=== PATIENT | male | born 1945 | race Caucasian/White ===

== ENCOUNTER → 2020-05-16 08:49 | Outpatient (REF) | payer MEDICARE, SELFPAY ==
--- NOTE | 2020-05-16 09:30 | CA_ITS ---
Transthoracic Echocardiogram Patient (Last, First, Middle): Everardo Mirza B Gender: Male Date of : 1945 Age: 75 Procedure Date: 05/16/2020 Procedure Type: Transthoracic Echocardiogram Location: OP Height: 182.88 cm Weight: 108.86 kg BSA: 2.30 m2 Heart Rate: bpm BP: 128 / 72 mmHg Operational Intelligence Analyst: Referring MD: Simone Uribe MD Symptoms: dilated ascending aorta Study Quality: Fair ECG Rhythm: Sinus Conclusions: - The left ventricular systolic function is normal. The visually estimated ejection fraction is between 55-60%. - No obvious valvular pathology seen on this study. - Top normal ascending aortic size at 4 cm. Findings Left Ventricle Normal left ventricular cavity size. There is mildly increased left ventricular wall thickness. The left ventricular systolic function is normal. The visually estimated ejection fraction is between 55-60%. There is no evidence of regional wall motion abnormalities. Diastolic function is normal for age. Right Ventricle Normal right ventricular cavity size and systolic function. Atria Both atria are normal in size. Aortic Valve There is a normal trileaflet aortic valve. There is no aortic valve stenosis. There is trace (trivial) aortic valve regurgitation. Mitral Valve The mitral valve appears normal. There is mild mitral annular calcification. There is no mitral valve regurgitation. There is no mitral valve stenosis. Pulmonic Valve The pulmonic valve was not well visualized. Tricuspid Valve Normal tricuspid valve structure. There is mild tricuspid valve regurgitation. The pulmonary artery systolic pressure is normal. Great Vessels Top normal ascending aortic size at 4 cm. Venous The inferior vena cava is normal in size and collapses greater than 50% with inspiration. Pericardium/Pleural There is no evidence of pericardial effusion. Prior Study Comparison No significant change compared to prior study dated: 04/29/2019. Recommendations, Care & Conclusions No obvious valvular pathology seen on this study. Measurements 2D Linear Measurements RVIDd: 3.40 RVIDd Index: 1.48 IVSd: 1.06 0.6-0.9/0.6-1.0 cm LVIDd: 4.88 3.9-5.3/4.2-5.9 cm LVIDd Index: 2.12 2.4-3.2/2.2-3.1 cm/m2 LVIDs: 3.09 2.0-3.6 cm LVPWd: 1.30 0.7-1.1 cm Ao Root: 3.40 2.1-3.5 cm LA Diam: 4.30 2.7-3.8/3.0-4.0 cm LAIDs Index: 1.87 1.5-2.3 cm/m2 LV Mass: 273.82 67-162/88-224 g LV Mass Index: 119.05 43-95/49-115 g/m2 LVOT Diam: 2.30 3.0+(-)1.3 cm 2D Systolic Function EF 4C: 44.30 >55% EF 2C: 68.90 >55% EF BiP: 59.30 >55% Mitral Valve MV Pk E: 0.52 MV PK A: 0.68 MV Decel Time: 243.00 E/A: 0.80 E'Lateral: 11.10 E'Medial: 6.29 E/E' Med: 8.30 E/E' Lat: 4.70 Aortic Valve AoV Pk King: 1.03 AoV Mn King: 0.83 AoV VTI: 0.23 AoV Pk Grad: 4.00 Aov Mn Grad: 3.00 CALEB Cont.VTI: 3.58 AI Pk King: 3.33 AI Hunt: 1.21 LVOT LVOT Pk King: 1.05 LVOT Mn King: 0.69 LVOT VTI: 0.20 LVOT Pk Grad: 4.00 LVOT Mn Grad: 2.00 LVOT Diam: 2.30 LVOT Area: 4.15 Diastolic Function MV Pk E: 0.52 MV Pk A: 0.68 E/A: 0.80 E'Medial: 6.29 E/E' Med: 8.30 E' Laterial: 11.10 E/E' Lat: 4.70 Tricuspid Valve TR Pk King: 2.52 TR Pk Grad: 25.00 RA Press: 8.00 RVSP: 33.00 Great Vessels Aorta Ao Root-2D: 3.40 2.0-3.7 cm Ao Asc: 4.00 2.1-3.4 cm Ao Arch: 3.10 Updated in Other Vendor System with Status of Final Simone Uribe MD electronically signed on 05/17/2020 5:17:59 PM with status of Final
== END ==
LOC: HO.CARD 08:49
PROVIDERS: PCP Nurse Practitioner Family; Visit Provider Internal Medicine
DX: I77.810 Thoracic aortic ectasia (principal)
CPT/HCPCS: 93306

== ENCOUNTER → 2020-06-01 13:00 | Outpatient (BNVA) | payer MEDICARE, SELFPAY | PROVIDERS: PCP Nurse Practitioner Family; Visit Provider Internal Medicine | DX: I48.0 Paroxysmal atrial fibrillation (principal); I77.810 Thoracic aortic ectasia; Z79.01 Long term (current) use of anticoagulants; Z79.899 Other long term (current) drug therapy | CPT/HCPCS: 93005; 99212 ==

== ENCOUNTER → 2021-05-30 09:59 | Outpatient (BNVA) | payer MEDICARE, SELFPAY | PROVIDERS: PCP Nurse Practitioner Family; Referring Provider Nurse Practitioner Family; Visit Provider Internal Medicine | DX: I48.0 Paroxysmal atrial fibrillation (principal); I44.0 Atrioventricular block, first degree; I77.810 Thoracic aortic ectasia | CPT/HCPCS: 93005; 99212 ==

== ENCOUNTER → 2022-03-26 10:15 | Outpatient (BNVA) | payer MEDICARE, SELFPAY | PROVIDERS: PCP Nurse Practitioner Family; Visit Provider Surgery Vascular Surgery | DX: I83.12 Varicose veins of left lower extremity with inflammation (principal); I83.91 Asymptomatic varicose veins of right lower extremity | CPT/HCPCS: 99202 ==

== ENCOUNTER → 2022-05-06 08:46 | Outpatient (REF) | payer MEDICARE, SELFPAY ==
--- NOTE | 2022-05-06 08:49 | CA_ITS ---
Transthoracic Echocardiogram Patient (Last, First, Middle): Everardo Mirza B Gender: Male Date of : 1945 Age: 77 Procedure Date: 05/06/2022 Procedure Type: Transthoracic Echocardiogram Location: OP Height: 182.88 cm Weight: 109.77 kg BSA: 2.31 m2 Heart Rate: 60 bpm BP: 120 / 70 mmHg Offset Printing Operator: JORDAN Cano MD: Simone Uribe MD Respiratory Practitioner: Lewis Espana MD Symptoms: I48.0 - Paroxysmal atrial fibrillation Study Quality: Fair ECG Rhythm: Sinus with PVCs Conclusions: - 1. Low normal LV ejection fraction with LVEF of 50-55% with grade 1 diastolic dysfunction 2. Trivial aortic regurgitation 3. Mildly dilated ascending aorta at 3.9 cm 4. Normal RV systolic pressure 5. No pericardial effusion Findings Left Ventricle Normal left ventricular cavity size. There is normal left ventricular wall thickness. The left ventricular systolic function is low normal. The visually estimated ejection fraction is between 50-55%. Spectral Doppler is indicative of an impaired relaxation filling pattern. E/E prime ratio is <8, consistent with normal filling pressures. Evidence suggests grade I (mild) diastolic dysfunction. There is mild septal asymmetric hypertrophy. Right Ventricle Normal right ventricular cavity size and systolic function. Atria The left atrium is normal in size. Interatrial shunt cannot be excluded. The right atrium was not well visualized. Aortic Valve There is mild calcification of the aortic valve. There is no aortic valve stenosis. There is trace (trivial) aortic valve regurgitation. Mitral Valve There is mild anterior and posterior mitral leaflet thickening. There is trace mitral valve regurgitation. There is no mitral valve stenosis. Pulmonic Valve The pulmonic valve was not well visualized. Tricuspid Valve Likely normal tricuspid valve structure and function. There is trace tricuspid valve regurgitation. The right ventricular systolic pressure is normal. The right ventricular systolic pressure is 15 mmHg. Normal right atrial pressure. There is no evidence of pulmonary hypertension. Great Vessels The pulmonary artery was not well visualized. There is mild dilatation of the ascending aorta measuring 3.90 cm. Venous The inferior vena cava is normal in size and collapses greater than 50% with inspiration. Pericardium/Pleural There is no evidence of pericardial effusion. Prior Study Comparison Changes noted compared to prior study dated: 05/16/2020. LV systolic function marginally reduced Measurements 2D Linear Measurements IVSd: 1.44 0.6-0.9/0.6-1.0 cm LVIDd: 3.93 3.9-5.3/4.2-5.9 cm LVIDd Index: 1.70 2.4-3.2/2.2-3.1 cm/m2 LVIDs: 2.96 2.0-3.6 cm LVPWd: 1.11 0.7-1.1 cm LA Diam: 3.60 2.7-3.8/3.0-4.0 cm LAIDs Index: 1.56 1.5-2.3 cm/m2 LV Mass: 219.86 67-162/88-224 g LV Mass Index: 95.18 43-95/49-115 g/m2 LVOT Diam: 2.30 3.0+(-)1.3 cm 2D Systolic Function EF 4C: 48.20 >55% EF 2C: 54.20 >55% EF BiP: 53.40 >55% Mitral Valve MV Pk E: 0.37 MV PK A: 0.66 MV Decel Time: 874.00 E/A: 0.60 E'Lateral: 6.09 E'Medial: 5.33 E/E' Med: 7.00 E/E' Lat: 6.10 PHT: 256.00 MVA PHT: 0.86 Decel Gilliam: 0.43 Aortic Valve AoV Pk King: 0.89 AoV Mn King: 0.68 AoV VTI: 0.21 AoV Pk Grad: 3.00 Aov Mn Grad: 2.00 CALEB Cont.VTI: 3.20 LVOT LVOT Pk King: 0.73 LVOT Mn King: 0.53 LVOT VTI: 0.16 LVOT Pk Grad: 2.00 LVOT Mn Grad: 1.00 LVOT Diam: 2.30 LVOT Area: 4.15 Diastolic Function MV Pk E: 0.37 MV Pk A: 0.66 E/A: 0.60 E'Medial: 5.33 E/E' Med: 7.00 E' Laterial: 6.09 E/E' Lat: 6.10 Right Ventricle TAPSE (mm): 20.40 TVS' King: 9.14 Tricuspid Valve TR Pk King: 1.70 TR Pk Grad: 12.00 RA Press: 3.00 RVSP: 15.00 Great Vessels Aorta Sinus of Valsalva: 3.70 2.0-3.5 cm Ao Asc: 3.90 2.1-3.4 cm Pulmonary Valve PV Pk King: 0.69 Peak PV Grad: 2.00 Updated in Other Vendor System with Status of Final Lewis Espana MD electronically signed on 05/06/2022 6:20:00 PM with status of Final
== END ==
LOC: HO.CARD 08:46
PROVIDERS: Visit Provider Internal Medicine
DX: I48.0 Paroxysmal atrial fibrillation (principal)
CPT/HCPCS: 93306

== ENCOUNTER 2022-05-21 09:25 | Outpatient (REF) | payer MEDICARE, SELFPAY ==
--- NOTE | ~2022-05-21 | US_ITS ---
EXAMINATION: US LOWER EXTREMITY VENOUS (REFLUX EXAM), BILATERAL CLINICAL INDICATION: This is a 77-year-old male with venous insufficiency. Leg swelling. Varicose veins. COMPARISON: None. TECHNIQUE: Color flow triplex imaging and compression Doppler was performed to evaluate both the deep and the superficial systems bilaterally. To evaluate the superficial system, the examination was performed in the upright position. Color-flow Doppler ultrasound and compression ultrasound were utilized. In addition, maneuvers were utilized to demonstrate reflux. FINDINGS: 1. DEEP VENOUS ULTRASOUND OF THE RIGHT LOWER EXTREMITY: Common Femoral Vein: Compressible, normal respiratory variation and augmented flow. Femoral vein: Compressible, normal color flow and augmentation. Popliteal Vein: The vessels compressible but there is reflux of 2800 ms. Deep Reflux: There is evidence of reflux in the deep system in either the common femoral vein or the popliteal vein. There is no evidence of a Clark's cyst. 2. SUPERFICIAL ULTRASOUND WITH DOPPLER OF RIGHT LOWER EXTREMITY: GREAT SAPHENOUS VEIN: Saphenofemoral Junction: 1.1 cm. There is no reflux. Proximal thigh: 1.0 cm. There is no reflux. Mid Thigh: 0.4 cm. The reflux time is 3240 ms. Above Knee: 0.5 cm. There is no reflux. Below Knee: 0.3 cm. There is reflux of 3360 ms. Mid Calf: 0.3 cm. The reflux time is 2484 ms. Ankle: 0.3 cm. There is no reflux. GSV REFLUX: There is reflux in the great saphenous vein but not seen at the junction or the proximal thigh. DUPLICATED GREAT SAPHENOUS VEIN: None SMALL SAPHENOUS VEIN: Proximal: 0.9 cm. The reflux time is 3396 ms Distal: 0.4 cm. The reflux time is 1592 ms. SSV REFLUX: There is reflux at the junction and extending into the calf. VEIN OF GIACOMINI: None Imaged. PERFORATORS: A 0.4 cm distal calf instructor ground services with reflux is noted. VARICOSITIES: Multiple varicosities are noted throughout the leg. 3. DEEP VENOUS ULTRASOUND OF THE LEFT LOWER EXTREMITY: Common Femoral Vein: Compressible, normal respiratory variation and augmented flow. Femoral Vein: Compressible, but with reflux of 2044 ms. Popliteal Vein: Compressible, but with reflux of 2007 are 64 ms. Deep Reflux: There is evidence of reflux in the deep system in either the common femoral vein or the popliteal vein. There is no evidence of a Calrk's cyst. 4. SUPERFICIAL ULTRASOUND WITH DOPPLER OF LEFT LOWER EXTREMITY: GREAT SAPHENOUS VEIN: Saphenofemoral Junction: 1.0 cm. There is no reflux. Proximal thigh: 0.9 cm without reflux. Mid Thigh: 0.4 cm. The reflux time is 3016 ms. Above Knee: 0.4 cm. There is no reflux. Below Knee: 0.3 cm. The reflux time is 1992 ms. Mid Calf: 0.2 cm. The reflux time is 2020 ms. Ankle: 0.5 cm. There is no reflux. GSV REFLUX: There is reflux in the great saphenous vein but not at the saphenofemoral junction or proximal thigh. DUPLICATED GREAT SAPHENOUS VEIN: There is a 0.3 cm duplicated medial great saphenous vein without reflux. SMALL SAPHENOUS VEIN: Proximal: 0.3 cm. The reflux time is 1612 ms. Distal: 0.4 cm. There is no reflux SSV REFLUX: There is reflux in the small saphenous vein. The reflux is seen at the junction. VEIN OF GIACOMINI: None Imaged. PERFORATORS: There are 0.2 cm perforators laterally in the distal thigh and proximal calf, respectively. VARICOSITIES: Multiple varicose veins are noted. US/US venous duplex LE BI IMPRESSION: 1. There are patent bilateral great saphenous veins without evidence of reflux at the saphenofemoral junction or proximal thigh. 2. There are patent bilateral small saphenous veins with reflux at the junction and extending into the calf. 3. There are bilateral perforators and varicose veins with reflux as noted.
[2022-05-21 10:16] LABS: Hemoglobin 13.5 g/dl (14.0-18.0); Mean Corpuscular HGB Conc 32.9 g/dl (31.0-36.0); Mean Corpuscular Hemoglobin 32.7 pg (27.0-33.0); Mean Corpuscular Volume 99.3 fL (80.0-98.0); Mean Platelet Volume 10.8 fL (9.4-12.4); Platelet Count 134 X10*3/uL (160-400); Red Blood Count 4.13 X10*6/uL (4.60-5.80); Red Cell Distribution Width 13.3 % (11.0-16.0); White Blood Count 7.1 X10*3/uL (4.8-10.8)
[2022-05-21 10:50] LABS: Anion Gap 15 (12-20); Blood Urea Nitrogen 18 mg/dL (9-16); Calcium 8.7 mg/dL (8.4-10.2); Carbon Dioxide 27 mmol/L (22-29); Chloride 104 mmol/L (96-108); Estimated Glomerular Filt Rate > 60; Glucose Random 93 mg/dL (60-115); Potassium 4.8 mmol/L (3.3-5.1); Sodium 141 mmol/L (135-145)
== END 2022-05-21 09:26 | disposition home or self-care (01) ==
LOC: HO.US 09:25
PROVIDERS: Absent Provider Internal Medicine; PCP Nurse Practitioner Family; Visit Provider Surgery Vascular Surgery
DX: I48.0 Paroxysmal atrial fibrillation (principal); I77.810 Thoracic aortic ectasia; I44.0 Atrioventricular block, first degree; I83.12 Varicose veins of left lower extremity with inflammation; R60.0 Localized edema
CPT/HCPCS: 36415; 80048; 85027; 93005; 93970; 99212

== ENCOUNTER → 2022-05-28 10:13 | Outpatient (BNVA) | payer MEDICARE, SELFPAY | PROVIDERS: PCP Nurse Practitioner Family; Visit Provider Surgery Vascular Surgery | DX: I83.12 Varicose veins of left lower extremity with inflammation (principal) | CPT/HCPCS: 99212 ==

== ENCOUNTER → 2022-06-21 08:24 | Outpatient (BNVA) | payer MEDICARE, SELFPAY | PROVIDERS: PCP Nurse Practitioner Family; Visit Provider Surgery Vascular Surgery | DX: I83.12 Varicose veins of left lower extremity with inflammation (principal) | CPT/HCPCS: 36482 ==

== ENCOUNTER 2022-06-24 14:57 | Outpatient (REF) | payer MEDICARE, SELFPAY ==
--- NOTE | ~2022-06-24 | US_ITS ---
EXAMINATION: US VENOUS ULTRASOUND WITH DOPPLER LOWER EXTREMITY, LEFT CLINICAL INFORMATION: Pain left leg COMPARISON: None TECHNIQUE: Ultrasound of the deep veins is performed from the hip to the calf with compression sonography and color and pulse Doppler assessment. Spectral analysis with color-flow imaging is performed. FINDINGS: There is normal venous compression and respiratory variation and augmented flow. The visualized common femoral vein, superficial femoral vein, profunda femoral vein, popliteal vein, and the trifurcation region shows no evidence of deep venous thrombosis. There is no significant popliteal fossa cyst. The left greater saphenous vein has thrombus and closed, 1.8 cm from the junction If the patient's symptoms persist, followup ultrasound in 5 days 7 days might be of value to exclude proximal propagation from a non-visualized calf vein. US/US venous duplex LE LT IMPRESSION: No DVT demonstrated in the left lower extremity. Status post ablation of left greater saphenous vein has thrombus and is closed.
== END 2022-06-24 14:58 | disposition home or self-care (01) ==
LOC: HO.US 14:57
PROVIDERS: Visit Provider Surgery Vascular Surgery
DX: M79.605 Pain in left leg (principal)
CPT/HCPCS: 93971

== ENCOUNTER → 2022-07-04 12:38 | Outpatient (BNVA) | payer MEDICARE, SELFPAY | PROVIDERS: PCP Nurse Practitioner Family; Visit Provider Surgery Vascular Surgery | DX: I83.12 Varicose veins of left lower extremity with inflammation (principal); I83.11 Varicose veins of right lower extremity with inflammation | CPT/HCPCS: 99212 ==

== ENCOUNTER → 2022-08-23 08:33 | Outpatient (BNVA) | payer MEDICARE, SELFPAY | PROVIDERS: PCP Nurse Practitioner Family; Visit Provider Surgery Vascular Surgery | DX: I83.11 Varicose veins of right lower extremity with inflammation (principal) | CPT/HCPCS: 36482 ==

== ENCOUNTER 2022-08-26 11:10 | Outpatient (REF) | payer MEDICARE, SELFPAY ==
--- NOTE | ~2022-08-26 | US_ITS ---
EXAMINATION: US TRIPLEX SCANNING OF RIGHT LOWER EXTREMITY; SUPERFICIAL ULTRASOUND WITH DOPPLER OF RIGHT LOWER EXTREMITY CLINICAL INFORMATION: Status post VenaSeal treatment of the right great saphenous vein. COMPARISON: Preprocedure studies. TECHNIQUE: Color flow triplex imaging and compression Doppler were performed as well as superficial ultrasound with Doppler. FINDINGS: TRIPLEX SCANNING OF RIGHT LOWER EXTREMITY: Respiratory variation, normal compression and augmented flow are noted throughout the lower extremity. The visualized common femoral vein, femoral vein, profunda femoral vein, popliteal vein and the calf veins show no evidence of deep venous thrombosis. Incidental note made of a 2.0 x 1.5 x 1.3 cm Clark's cyst. SUPERFICIAL ULTRASOUND WITH DOPPLER OF RIGHT LOWER EXTREMITY: The right great saphenous vein is occluded from the access site to 2.0 cm before the saphenofemoral junction. There is no extension of thrombus into the deep system. US/US venous duplex LE RT IMPRESSION: 1. Normal triplex scan of the right without evidence of deep venous thrombosis. 2. Clark's cyst. 3. Excellent appearance status post VenaSeal ablation of the right great saphenous vein.
== END 2022-08-26 11:11 | disposition home or self-care (01) ==
LOC: HO.US 11:10
PROVIDERS: PCP Nurse Practitioner Family; Visit Provider Surgery Vascular Surgery
DX: M79.604 Pain in right leg (principal)
CPT/HCPCS: 93971

== ENCOUNTER → 2022-09-05 08:52 | Outpatient (BNVA) | payer MEDICARE, SELFPAY | PROVIDERS: PCP Nurse Practitioner Family; Visit Provider Surgery Vascular Surgery | DX: I83.12 Varicose veins of left lower extremity with inflammation (principal); I83.11 Varicose veins of right lower extremity with inflammation | CPT/HCPCS: 99212 ==

== ENCOUNTER → 2022-11-01 08:24 | Outpatient (BNVA) | payer MEDICARE, SELFPAY | PROVIDERS: PCP Nurse Practitioner Family; Visit Provider Surgery Vascular Surgery | DX: I83.11 Varicose veins of right lower extremity with inflammation (principal) | CPT/HCPCS: 36475 ==

== ENCOUNTER 2022-11-04 10:19 | Outpatient (REF) | payer MEDICARE, SELFPAY ==
--- NOTE | ~2022-11-04 | US_ITS ---
EXAMINATION: TRIPLEX SCANNING OF RIGHT LOWER EXTREMITY; SUPERFICIAL ULTRASOUND WITH DOPPLER OF RIGHT LOWER EXTREMITY CLINICAL INFORMATION: Status post radiofrequency ablation of the right small saphenous vein Status post Venaseal of the right great saphenous vein COMPARISON: Ultrasound from 08/26/2022 and 05/21/2022. TECHNIQUE: Color flow triplex imaging and compression Doppler were performed as well as superficial ultrasound with Doppler. FINDINGS: RIGHT LOWER EXTREMITY DEEP VENOUS SYSTEM: Respiratory variation, normal compression and augmented flow are noted throughout the lower extremity. The visualized common femoral vein, femoral vein, profunda femoral vein, popliteal vein and the calf veins show no evidence of deep venous thrombosis. There is no evidence of Clark's cyst. SUPERFICIAL VENOUS SYSTEM: The great saphenous vein is occluded from the access site to 7.9 cm before the saphenofemoral junction. The small saphenous vein is occluded from the access site to 4.2 cm before the saphenopopliteal junction. There is no extension of thrombus into the deep system. US/US venous duplex LE RT IMPRESSION: 1. No evidence of DVT. 2. Excellent appearance status post ablation of the right great saphenous vein and small saphenous.
== END 2022-11-04 10:20 | disposition home or self-care (01) ==
LOC: HO.HMGCX 10:19
PROVIDERS: PCP Nurse Practitioner Family; Visit Provider Surgery Vascular Surgery
DX: M79.604 Pain in right leg (principal)
CPT/HCPCS: 93971

== ENCOUNTER → 2022-11-14 09:50 | Outpatient (BNVA) | payer MEDICARE, SELFPAY | PROVIDERS: PCP Nurse Practitioner Family; Visit Provider Surgery Vascular Surgery | DX: I83.11 Varicose veins of right lower extremity with inflammation (principal); I83.12 Varicose veins of left lower extremity with inflammation | CPT/HCPCS: 99212 ==

== ENCOUNTER 2023-05-01 13:39 | Outpatient (AMB) | payer MEDICARE, SELFPAY ==
--- NOTE | 2023-05-01 13:36 | A.OFFVIS_ITS ---
Intake Vital Signs 05/01/23 13:43 Height 6 ft Weight 242 lb BMI 32.8 Intake Visit Reasons: Leg discoloration and swelling Intake Note: pt here for fu on right SSV RFA 11/01/22 and GSV venaseal 06/21/22 rigth GSV venaseal 11/14/22,Pt says he is having swelling and discoloration in left freeman started about 2 months ago.Pt has tried using compression stockings but they make his legs feel worst Allergies Penicillins [PENICILLINS] Adverse Reaction (Unknown, Verified 05/01/23 13:44) DIARRHEA HPI Leg discoloration and swelling HPI Details Very pleasant 78-year-old gentleman presents for follow-up regarding his lower extremities. He had undergone previous venous treatment of the right and left lower extremity including ablation of the right small and great saphenous vein and ablation of the left great saphenous vein. He reports he had been doing fairly well and most recently had significant swelling of the left lower extremity. He now presents for follow-up. [facility] Medical History Ascending aorta dilatation PAF (paroxysmal atrial fibrillation) Surgical History History of umbilical hernia repair Status post ablation of incompetent vein using laser Family History Father No problems noted. Mother No problems noted. Social History Patient Tobacco Use Status: Former Tobacco user Quit Date: 30 years ago Review of Systems Const Reports as per HPI ENT Reports no additional complaints Card Denies chest pain, Denies chest pain at rest and Denies chest pain with activity Resp Denies chest congestion and Denies cough GI Reports no additional complaints Musc Details: pain over varicosities, aching of lower extremities, swelling, cramping, heaviness and tiredness, itching Denies abnormal gait Skin/Breast Reports pruritus and Denies wounds Neuro Reports no additional complaints and Denies abnormal gait Psych Denies no additional complaints Physical Exam Vital Signs: BMI result Body Mass Index 32.8 Const General: cooperative, healthy appearing and comfortable Orientation/consciousness: oriented to person, oriented to place and oriented to time Neck Carotids: no bruits Chest Chest palpation & inspection: normal inspection of the chest and normal palpation of entire chest wall Resp Effort & Inspection: normal respiratory effort and able to speak in complete s entences Cardio Rate: regular rate Heart sounds: S1 normal heart sound present and S2 normal heart sound present Peripheral pulses: Peripheral pulses 2+ throughout GI Inspection: Yes normal to inspection Skin Other: +2 edema, large rope-like varicosities greater than 4 mm left calf pretibial surface CEAP Classification C4 - skin color changes Ep - Etiology Primary As - superficial veins P - reflux General skin exam: dry skin Neuro General: oriented to person, oriented to place and oriented to time Extrem Right lower extremity: full ROM, normal capillary refill and edema Left lower extremity: full ROM, normal capillary refill and edema Psych Mental Status: mental status grossly normal Assessment & Plan Assessment & Plan (1) Varicose veins of right lower extremity with inflammation: Comment: 08/23/2022 - right great saphenous vein Cyanoacralate ablation 11/01/2022 - right small saphenous vein radiofrequency ablation Code(s): I83.11 - Varicose veins of right lower extremity with inflammation (2) Varicose veins of left lower extremity with inflammation: Comment: 06/21/2022 - left great saphenous vein Cyanoacralate ablation Code(s): I83.12 - Varicose veins of left lower extremity with inflammation Plan: In short patient has significant swelling of the left lower extremity. I have taken the liberty of ordering repeat left leg venous insufficiency testing to evaluate prior ablation and potential new reflux. He will follow up with us after testing. We did discuss routine risk factor modification including compression, elevation, and exercise. Thank you for allowing us to assist in his care. Orders: Orders US venous duplex LE LT 1 Week I83.12 - Varicose veins of left lower extremity with inflammation Coding Level of Care Code Est Pt Level 4 (50914) Diagnoses Varicose veins of right lower extremity with inflammation I83.11 Varicose veins of left lower extremity with inflammation I83.12
[2023-05-01 13:43] VITALS: BMI 32.8
== END 2023-05-01 13:59 | disposition home or self-care (01) ==
PROVIDERS: PCP Nurse Practitioner Family; Visit Provider Surgery Vascular Surgery
DX: I83.11 Varicose veins of right lower extremity with inflammation (principal); I83.12 Varicose veins of left lower extremity with inflammation
CPT/HCPCS: 99213

== ENCOUNTER → 2023-05-01 13:39 | Outpatient (BNVA) | payer MEDICARE, SELFPAY | PROVIDERS: PCP Nurse Practitioner Family; Visit Provider Surgery Vascular Surgery | DX: I83.11 Varicose veins of right lower extremity with inflammation (principal); I83.12 Varicose veins of left lower extremity with inflammation; Z98.890 Other specified postprocedural states | CPT/HCPCS: 99212 ==

== ENCOUNTER 2023-05-09 10:16 | Outpatient (REF) | payer MEDICARE, SELFPAY | END 2023-05-09 10:17 | disposition home or self-care (01) | LOC: HO.US 10:16 | PROVIDERS: Visit Provider Surgery Vascular Surgery | DX: I83.12 Varicose veins of left lower extremity with inflammation (principal) | CPT/HCPCS: 93971 ==

== ENCOUNTER 2023-05-21 12:47 | Outpatient (AMB) | payer MEDICARE, SELFPAY ==
[2023-05-21 13:10] VITALS: BP 94/62; PULSE 77; BMI 34.1
--- NOTE | 2023-05-21 13:10 | A.OFFVIS_ITS ---
Intake Vital Signs 05/21/23 13:10 Height 6 ft Weight 251 lb 5.231 oz BMI 34.1 BP 94/62 Blood Pressure Location Lt brachial Position Sitting Pulse 77 Intake Visit Reasons: 1 year follow up Intake Note: 1 year follow up w/ EKG Pulmonary Disease Specialist Required: No Allergies Penicillins [PENICILLINS] Adverse Reaction (Unknown, Verified 05/21/23 13:13) DIARRHEA Medication List - Last Reconciled 05/21/23 by Simone Uribe MD apixaban (Eliquis) 5 mg PO BID furosemide 20 mg PO DAILY metoprolol succinate ER 25 mg PO DAILY HPI HPI Comments History of Present Illness Details Everardo returns for follow-up regarding atrial fibrillation.? In 2016, he was admitted for chest pressure accompanied by weakness.? 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 He was found to be in atrial fibrillation with rapid rate.? Then he converted back to sinus rhythm.? Since that time, he has been on? beta-blockers as well as anticoagulation. Overall, doing good. No clear-cut complaints. Probably some forgetfulness per daughter. Otherwise, generally stable. Over the last few years, weight has been gradually going up, mainly because of inactivity. [facility] Medical History Ascending aorta dilatation PAF (paroxysmal atrial fibrillation) Surgical History Status post ablation of incompetent vein using laser History of umbilical hernia repair Family History Father No problems noted. Mother No problems noted. Social History Patient Tobacco Use Status: Former Tobacco user Quit Date: 30 years ago Review of Systems Const All systems reviewed & are unremarkable except as noted in HPI and below Reports as per HPI and Reports no additional complaints Eyes Reports as per HPI and Denies no additional complaints ENT Denies no additional complaints and Reports as per HPI Card Reports as per HPI, Reports no additional complaints, Denies acrocyanosis, Denies chest pain, Denies leg edema, Denies lightheadedness, Denies palpitations and Denies dyspnea Resp Reports as per HPI, Denies no additional complaints and Denies dyspnea GI Reports as per HPI and Denies no additional complaints Reports no additional complaints and Reports as per HPI Musc Reports no additional complaints and Reports as per HPI Skin/Breast Reports system reviewed and no additional complaints, except as documented Neuro Reports no additional complaints and Reports as per HPI Psych Reports no additional complaints and Reports as per HPI Endo Reports no additional complaints, Reports as per HPI and Denies palpitations Lee/Lymph Reports no additional complaints and Reports as per HPI Aller/Immun Reports no additional complaints and Reports as per HPI Physical Exam Vital Signs: Last Vital Signs Pulse 77 05/21/23 13:10 BP 94/62 05/21/23 13:10 BMI result Body Mass Index 34.1 Const General: comfortable and no acute distress Orientation/consciousness: patient oriented x3 HEENT Other: Unremarkable Head: Yes normal to inspection Neck Neck: Yes normal visual inspection Chest Chest palpation & inspection: normal inspection of the chest Resp Auscultation: clear to auscultation bilaterally Cardio Palpation: normal PMI Heart sounds: S1 normal heart sound present, S2 normal heart sound present, no gallops, no murmurs and no rubs GI Palpation (GI): Soft to palpation Back/Spine/Pelvis Other: unremarkable Skin General skin exam: no rashes or lesions noted Neuro General: patient oriented x3 Extrem Other: Trace to 1+ edema General: Yes normal to inspection Psych Mental Status: mental status grossly normal Office Procedures EKG Details: EKG with sinus rhythm at 77/Min; no significant ST-T changes; [place] [id number], Complete Assessment & Plan Assessment & Plan (1) PAF (paroxysmal atrial fibrillation): Code(s): I48.0 - Paroxysmal atrial fibrillation Plan: Continue beta-blockers and anticoagulation. Advised him to ensure labs get done through his PCP. (2) Ascending aorta dilatation: Code(s): I77.810 - Thoracic aortic ectasia Plan: In the echocardiogram, ascending aortic size was 3.9 cm. Considering his BSA, within acceptable limits. (3) Leg swelling: Code(s): M79.89 - Other specified soft tissue disorders Plan: Suspect more dependent edema anything else. Leg elevation, compression stockings if he tolerates. Also going to vascular. Plan Total time spent including counseling, documentation, coordination of care-32 minutes. Orders: Orders CA echo transthoracic complete 51 Weeks I77.810 - Thoracic aortic ectasia Coding Level of Care Code Est Pt Level 3 (86277) Diagnoses PAF (paroxysmal atrial fibrillation) I48.0 Ascending aorta dilatation I77.810 Leg swelling M79.89 CPT Codes EKG - CPT: 72145-[id number], Complete ([id number])
== END 2023-05-21 13:36 | disposition home or self-care (01) ==
PROVIDERS: PCP Nurse Practitioner Family; Visit Provider Internal Medicine
DX: I48.0 Paroxysmal atrial fibrillation (principal); I77.810 Thoracic aortic ectasia; M79.89 Other specified soft tissue disorders
CPT/HCPCS: 93010; 99213

== ENCOUNTER → 2023-05-21 12:47 | Outpatient (BNVA) | payer MEDICARE, SELFPAY | PROVIDERS: PCP Nurse Practitioner Family; Visit Provider Internal Medicine | DX: I48.0 Paroxysmal atrial fibrillation (principal); I77.810 Thoracic aortic ectasia; M79.89 Other specified soft tissue disorders | CPT/HCPCS: 93005; 99212 ==

== ENCOUNTER 2023-05-27 19:25 | Emergency (ER) | payer MEDICARE, SELFPAY ==
--- NOTE | ~2023-05-27 | XR_ITS ---
EXAMINATION: XR CHEST CLINICAL INFORMATION: Weakness COMPARISON: Chest radiograph from 07/15/2016 TECHNIQUE: 2 views of the chest were obtained. FINDINGS: Chronic coarsened interstitial lung markings. Bibasilar atelectasis versus scarring. No pneumothorax. Trachea is midline. Cardiomediastinal silhouette is not enlarged. No large pleural effusion. Degenerative changes of the thoracolumbar spine. Soft tissues are unremarkable. XR/XR chest 2V IMPRESSION: 1. Chronic coarsened interstitial lung markings. 2. Bibasilar atelectasis versus scarring.
[2023-05-27 19:43] VITALS: BP 138/63; PULSE 71; RESP 20; TEMP 36.4; O2SAT 94; BMI 34.0
--- NOTE | 2023-05-27 19:43 | ECG_ITS ---
Test Reason : WEAKNESS Blood Pressure : / mmHG Vent. Rate : 063 BPM Atrial Rate : 063 BPM P-R Int : 260 ms QRS Dur : 090 ms QT Int : 412 ms P-R-T Axes : -04 -05 019 degrees QTc Int : 421 ms Sinus rhythm with 1st degree A-V block Otherwise normal ECG When compared with ECG of 16-JUL-2016 06:31, [place] interval has increased Referred By: Seema Tam Electronically Signed By:ENRIQUE FELDMAN MD
--- NOTE | 2023-05-27 19:45 | ED_ITS ---
HPI - Weakness General Chief complaint: Weakness Stated complaint: heart issue, weakness Time Seen by Provider: 05/28/23 01:01 Source: patient and family Mode of arrival: ambulatory History of Present Illness HPI Narrative: 78-year-old male who presents with complaints feeling weak over the past couple of days while engaging in vigorous activities such as raking leaves and cleaning gutters. He denies any associated shortness of breath, dizziness, diaphoresis, nausea, chest pain or palpitations and denies any GI or symptoms as well as denies any new cough/sore throat/body aches. Patient has been to see Dr. 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 Patient does report a cardiac event approximately 3 years ago. Related Data Previous Rx's Medication Instructions Recorded apixaban 5 mg tablet (Eliquis) 5 mg PO BID #180 tabs 07/23/22 metoprolol succinate 25 mg 25 mg PO DAILY #90 tabs 02/17/23 tablet,extended release 24 hr furosemide 20 mg tablet 20 mg PO DAILY #90 tabs 05/26/23 Allergies Allergy/AdvReac Type Severity Reaction Status Date / Time Penicillins [PENICILLINS] AdvReac Unknown DIARRHEA Verified 05/21/23 13:13 Review of Systems 2 Review of Systems: Pertinent positives and negatives as stated in HPI PMFSH Past Medical History Source: nursing notes reviewed Medical History Ascending aorta dilatation PAF (paroxysmal atrial fibrillation) Surgical History Status post ablation of incompetent vein using laser History of umbilical hernia repair Family History Family History Father No problems noted. Mother No problems noted. Social History Social History Alcohol intake: current Alcohol intake frequency: holidays/special occasions only Patient Tobacco Use Status: Former Tobacco user Quit Date: 30 years ago Smoked in Last 30 Days: No Use of substances other than those prescribed or required for medical reasons: No Advance Directives: No Advance Directives Information Provided: No Physical Exam 2 Vital Signs: Vital Signs: Last Vital Signs Temp 97.7 F 05/27/23 23:53 Pulse 66 05/27/23 23:53 Resp 17 05/27/23 23:53 BP 148/79 H 05/27/23 23:53 Pulse Ox 97 05/27/23 23:53 O2 Del Method Room Air 05/27/23 23:53 BMI result Body Mass Index 34.0 VITAL SIGNS: Reviewed. GENERAL: Well developed, well nourished, in no acute distress. HEAD: Normocephalic/atraumatic EYES: PERRLA, EOMI EARS: Ext canals without abnormality NOSE: Nares patent bilateral OROPHARYNX: no oral lesions noted, posterior pharynx clear NECK: Supple, no adenopathy LUNGS: Normal breath sounds. No adventitious sounds or accessory muscle use. SpO2<97> CARDIOVASCULAR: Regular rate and rhythm without noted murmurs, no JVD but L>R edema ABDOMEN: Soft, non-tender, non-distended with bowel sounds. MUSCULOSKELETAL: No tenderness, deformities, or effusions noted on gross inspection. EXTREMITIES: No cyanosis, clubbing or edema. SKIN: Inspection of the skin reveals no rashes NEUROLOGIC: Alert and oriented x 4. Strength and sensation to light touch were grossly intact x 4. Course Course Course Narrative: This is a rapid medical exam. Deferred additional HPI, ROS, PE to primary provider. 78yo male with past medical history of afib on eliquis here with complaints of weakness x 2 days, worsened with doing yard work yesterday. Will obtain EKG, labs, CXR VSS Medical Decision Making Medical Decision Making MDM Narrative: 78-year-old male with history and clinical presentation, DDX: Viral syndrome, CHF although felt to be less likely as there are no overt clinical signs, less likely felt to be pneumonia or ACS, age related decrease in activity as there are no concerning associated symptoms and no concerns for GI or symptoms at this time. On review of all investigations hematologic indices are grossly within chronic parameters as there is no leukocytosis or left shift, there is a stable macrocytic anemia as well as a thrombocytopenia. Patient is afebrile and blood pressure is stable. Coagulation studies demonstrate some elevation likely reflective of current use Eliquis. Chemistry indices are negative for KARSON and no evidence of electrolyte or liver enzyme derangements, high sensitivity troponin is undetectable. Chest x-ray does not demonstrate evidence of infiltrate in the reported chronic coarsened interstitial lung markings are likely reflective of his recent COVID-19 infection approximately 1 month ago in addition to underlying lung condition as it is described as chronic. Patient does not demonstrate any tachypnea/tachycardia, nor is he hypoxic on room air. Differential Diagnosis Differential Diagnoses: The differential diagnosis associated with the presentation includes Please see the discussion above Admission/Observation Consideration of admission/observation: Escalation of care including admission/observation considered Please see the discussion above Lab Data MDM Lab Attestation statement: I reviewed the patient's lab results. Please see the discussion above 05/27/23 19:57 05/27/23 19:57 Labs: Lab Results 05/27/23 Range/Units 19:57 WBC 5.9 (4.8-10.8) X10*3/uL RBC 4.14 L (4.60-5.80) X10*6/uL Hgb 13.9 L (14.0-18.0) g/dl Hct 41.8 L (42.0-52.0) % MCV 101.0 H (80.0-98.0) fL MCH 33.6 H (27.0-33.0) pg MCHC 33.3 (31.0-36.0) g/dl RDW 14.3 (11.0-16.0) % Plt Count 150 L (160-400) X10*3/uL MPV 10.3 (9.4-12.4) fL Immature Gran % (Auto) 0.5 H (0.0-0.4) % Neut % (Auto) 55.4 (45-73) % Lymph % (Auto) 30.6 (20-40) % Morrison % (Auto) 10.1 (2-11) % Eos % (Auto) 2.9 (0-4) % Baso % (Auto) 0.5 (0-2) % Lymph # (Auto) 1.8 (1.2-4.9) X10*3/uL Morrison # (Auto) 0.6 (0.1-1.2) X10*3/uL Eos # (Auto) 0.2 (0.0-0.4) X10*3/uL Baso # (Auto) 0.0 (0.0-0.2) X10*3/uL Abs Immat Gran (auto) 0.03 (0.00-0.03) X10*3/uL Absolute Neuts (auto) 3.3 (2.0-8.3) x10*3/uL Absolute Nucleated RBC 0.000 (0.0-0.012) X10*3/uL Nucleated RBC % (auto) 0.0 (0.0-0.2) /100WBC PT 14.1 H (11.1-13.3) SEC INR 1.2 H (0.9-1.1) Sodium 145 (135-145) mmol/L Potassium 4.2 (3.3-5.1) mmol/L Chloride 109 H (96-108) mmol/L Carbon Dioxide 27 (22-29) mmol/L Anion Gap 13 (12-20) BUN 18 H (9-16) mg/dL Creatinine 0.85 (0.5-1.4) mg/dL Estim Creat Clear Calc 90.2 Estimated GFR > 60 Random Glucose 108 (60-115) mg/dL Calcium 8.8 (8.4-10.2) mg/dL Magnesium 2.1 (1.6-2.6) mg/dL Total Bilirubin 0.3 (0.0-1.0) mg/dL Direct Bilirubin 0.1 (0.0-0.5) mg/dL AST 16 (5-37) U/L ALT 20 (0-40) U/L Alkaline Phosphatase 59 (39-117) U/L Troponin I High Sens < 2.7 (<3.5-35.0) ng/L Total Protein 6.9 (6.5-8.0) g/dL Albumin 3.7 (3.5-5.0) g/dL Independent Interpretation I performed an independent interpretation of an: EKG Interpretation: Sinus rhythm with first-degree AV block, HR-63, no STEMI, AL -260, QRS/QTC is within normal limits. I compared the patient's EKG with the 1 obtained on 05/21 which does not demonstrate a prolonged AL, but the EKG from 05/21/2022 does demonstrate AL prolongation. Radiology Impression Discussion of test interpretation with radiology: I have reviewed the radiologist's reading. Radiologist Impression: Please see the discussion above External Record Review External record reviewed: Office record, Outpatient record, Prior outpatient labs and Prior outpatient radiology Chronic Conditions Patient?s care impacted by: Hypertension and Other CAD Discharge Plan Discharge Clinical Impression: Weakness Patient Disposition: Home, Self-Care Instructions: Weakness (ED) Additional Instructions: 1. Resume all home medications as prescribed. 2. Recommend calling the office of your telephone clerk in the morning and discussing the possibility of stress test or echocardiogram for re-evaluation given your concerns regarding your weakness. There were no significant findings on your workup today to prompted admission and further immediate workup. 3. Also please contact your primary care provider so that they understand and are aware of what is going on with you right now as well. Return to the ER for any worsening symptoms. Prescriptions: No Action Eliquis 5 mg tablet 5 mg PO BID Qty: 180 3RF metoprolol succinate 25 mg tablet extended release 24 hr 25 mg PO DAILY Qty: 90 3RF furosemide 20 mg tablet 20 mg PO DAILY Qty: 90 3RF Referrals: Simone Uribe MD [Physician] -
[2023-05-27 20:05] LABS: MANUAL DIFF FLAG NO
[2023-05-27 20:06] LABS: Basophils Percent Auto 0.5 % (0-2); Eosinophils Absolute Auto 0.2 X10*3/uL (0.0-0.4); Eosinophils Percent Auto 2.9 % (0-4); Hematocrit 41.8 % (42.0-52.0); Hemoglobin 13.9 g/dl (14.0-18.0); Imm Gran Abs Auto 0.03 X10*3/uL (0.00-0.03); Imm Gran Pct Auto 0.5 % (0.0-0.4); Lymphocytes Absolute Auto 1.8 X10*3/uL (1.2-4.9); Lymphocytes Percent Auto 30.6 % (20-40); Mean Corpuscular HGB Conc 33.3 g/dl (31.0-36.0); Mean Corpuscular Hemoglobin 33.6 pg (27.0-33.0); Mean Platelet Volume 10.3 fL (9.4-12.4); Monocytes Absolute Auto 0.6 X10*3/uL (0.1-1.2); Monocytes Percent Auto 10.1 % (2-11); Neutrophils Absolute Auto 3.3 x10*3/uL (2.0-8.3); Neutrophils Percent Auto 55.4 % (45-73); Platelet Count 150 X10*3/uL (160-400); Red Blood Count 4.14 X10*6/uL (4.60-5.80); Red Cell Distribution Width 14.3 % (11.0-16.0); White Blood Count 5.9 X10*3/uL (4.8-10.8)
[2023-05-27 20:11] LABS: INTERNATIONAL NORM RATIO 1.2 (0.9-1.1); Prothrombin Time 14.1 SEC (11.1-13.3)
[2023-05-27 20:24] LABS: Alanine Aminotransferase 20 U/L (0-40); Albumin Level 3.7 g/dL (3.5-5.0); Alkaline Phosphatase 59 U/L (39-117); Anion Gap 13 (12-20); Aspartate Amino Transferase 16 U/L (5-37); Bilirubin Direct 0.1 mg/dL (0.0-0.5); Bilirubin Total 0.3 mg/dL (0.0-1.0); Blood Urea Nitrogen 18 mg/dL (9-16); Calcium 8.8 mg/dL (8.4-10.2); Carbon Dioxide 27 mmol/L (22-29); Chloride 109 mmol/L (96-108); Creatinine Clr Calc Pharmacy 90.2; Estimated Glomerular Filt Rate > 60; Glucose Random 108 mg/dL (60-115); Magnesium 2.1 mg/dL (1.6-2.6); Potassium 4.2 mmol/L (3.3-5.1); Sodium 145 mmol/L (135-145); Total Protein 6.9 g/dL (6.5-8.0)
[2023-05-27 20:34] LABS: Troponin-I High Sensitivity < 2.7 ng/L (<3.5-35.0)
[2023-05-27 23:53] VITALS: BP 148/79; PULSE 66; RESP 17; TEMP 36.5; O2SAT 97
== END 2023-05-28 03:34 | disposition home or self-care (01) ==
PROVIDERS: Nurse Practitioner Family; Emergency Provider Student in an Organized Health Care Education/Training Program
DX: R53.1 Weakness (principal); I48.0 Paroxysmal atrial fibrillation; Z87.891 Personal history of nicotine dependence; Z79.01 Long term (current) use of anticoagulants
CPT/HCPCS: 36415; 71046; 80048; 80076; 83735; 84484; 85025; 85610; 93005; 99283; 99285

== ENCOUNTER 2023-12-17 08:41 | Outpatient (REF) | payer MEDICARE, SELFPAY | END 2023-12-17 08:42 | disposition home or self-care (01) | LOC: HO.SH 08:41 | PROVIDERS: Visit Provider Nurse Practitioner Family | DX: Z01.118 Encounter for examination of ears and hearing with other abnormal findings (principal); H90.3 Sensorineural hearing loss, bilateral | CPT/HCPCS: 92557 ==

== ENCOUNTER 2024-05-10 08:36 | Outpatient (AMB) | payer MEDICARE, SELFPAY ==
--- NOTE | 2024-05-10 08:38 | A.OFFVIS_ITS ---
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 Patient reports constant swelling in his lower legs for years with his left leg being the worse. He does not really experience any pain. Denies numbness or tingling. He uses cane for ambulation. 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 He states he has weakness as well as constant swelling in his knee that is worse on his left leg. He denies any pain, numbness or tingling in his knees. He uses a cane for ambulation. [facility] Medical History Ascending aorta dilatation PAF (paroxysmal atrial fibrillation) Surgical History Status post ablation of incompetent vein using laser History of umbilical hernia repair Family History Father No problems noted. Mother No problems noted. Social History Alcohol intake: current Alcohol intake frequency: holidays/special occasions only Patient Tobacco Use Status: Former Tobacco user Review of Systems Const All systems reviewed & are unremarkable except as noted in HPI and below Physical Exam Vital Signs: BMI result Body Mass Index 34.0 Const General: cooperative, healthy appearing, comfortable, no acute distress, well developed and alert Orientation/consciousness: patient oriented x3 HEENT Head: Yes normal to inspection, Yes normocephalic and Yes atraumatic Eyes General: appearance normal, both eyes and all related structures Resp Effort & Inspection: normal respiratory effort and able to speak in complete sentences Cardio Rate: regular rate Peripheral pulses: Peripheral pulses 2+ throughout GI Palpation (GI): Soft to palpation Skin Lesions: no lesions Rashes: no rashes Neuro General: patient oriented x3 Extrem Other: Bilateral knee: Skin intact, no erythema or joint effusion. Tenderness along the medial and lateral joint line. Full ROM with crepitus. Negative Stephy?s. No ligamentous laxity. NVI. Results Reviewed Results Reviewed: Xrays were obtained in the office today and personally reviewed by me Assessment & Plan Assessment & Plan (1) Osteoarthritis of knees, bilateral: Code(s): M17.0 - Bilateral primary osteoarthritis of knee Category: Medical Qualifiers: Osteoarthritis type: primary Qualified Code(s): M17.0 - Bilateral primary osteoarthritis of knee Plan We discussed options which include PT, NSAIDs and injections. The patient will defer on the injection today and proceed with PT and NSAIDs. If symptoms persist, she will contact me for an injection, otherwise, PRN. Orders: Orders XR knee LT 3V Today M25.562 - Pain in left knee PT Evaluation and Treatment Today M17.0 - Bilateral primary osteoarthritis of knee XR knee RT 3V Today M17.11 - Unilateral primary osteoarthritis, right knee Patient Instructions: Scribed for El Uribe PA-C, by Philip Odonnell medical imaging specialist, on 05/10/2024 at 8:30 AM EST.? I, El Uribe PA-C, have personally reviewed and agree with the information entered by the scribe. Coding Level of Care Code New Pt Level 3 (47868) Complex EM visit Add On G2211 Diagnoses Primary osteoarthritis of both knees M17.0 Osteoarthritis type: primary
[2024-05-10 08:39] VITALS: BMI 34.0
== END 2024-05-10 09:33 | disposition home or self-care (01) ==
PROVIDERS: Visit Provider Physician Assistant
DX: M17.0 Bilateral primary osteoarthritis of knee (principal)
CPT/HCPCS: 99203

== ENCOUNTER 2024-05-10 11:50 | Outpatient (REF) | payer MEDICARE, SELFPAY ==
--- NOTE | ~2024-05-10 | XR_ITS ---
EXAMINATION: XR KNEE, RIGHT XR KNEE, LEFT CLINICAL INFORMATION: Osteoarthritis. COMPARISON: Bilateral knee radiographs dated 02/03/2018. TECHNIQUE: AP, oblique, lateral, and sunrise views of the right and left knee. FINDINGS: RIGHT KNEE: Severe medial compartment joint space narrowing with tricompartmental marginal osteophytes. Findings are progressed when compared to the prior examination. No acute fracture or dislocation. No concerning lytic or blastic osseous lesion. Trace joint effusion. Anterior ossified loose body measuring up to 1.0 cm. LEFT KNEE: Qwlyfodv-ly-omorvh medial compartment joint space narrowing. Tricompartmental marginal osteophytes. No acute fracture or dislocation. Findings are slightly progressed when compared to the prior examination. No concerning lytic or blastic osseous lesion. No abnormal soft tissue calcification. XR/XR knee LT 3V IMPRESSION: Right Knee: Tricompartmental osteoarthritis, most severe within the medial compartment. Findings are progressed when compared to the prior examination. Trace joint effusion. Left Knee: Tricompartmental osteoarthritis, most prominent within the medial compartment. Findings are slightly progressed when compared to the prior examination. Trace joint effusion. Electronically signed by: Marcellus Bender MD 06/04/2024 09:59 AM EDT Workstation: [id number]
--- NOTE | ~2024-05-10 | XR_ITS ---
EXAMINATION: XR KNEE, RIGHT XR KNEE, LEFT CLINICAL INFORMATION: Osteoarthritis. COMPARISON: Bilateral knee radiographs dated 02/03/2018. TECHNIQUE: AP, oblique, lateral, and sunrise views of the right and left knee. FINDINGS: RIGHT KNEE: Severe medial compartment joint space narrowing with tricompartmental marginal osteophytes. Findings are progressed when compared to the prior examination. No acute fracture or dislocation. No concerning lytic or blastic osseous lesion. Trace joint effusion. Anterior ossified loose body measuring up to 1.0 cm. LEFT KNEE: Zwshypeh-ve-gskasx medial compartment joint space narrowing. Tricompartmental marginal osteophytes. No acute fracture or dislocation. Findings are slightly progressed when compared to the prior examination. No concerning lytic or blastic osseous lesion. No abnormal soft tissue calcification. XR/XR knee RT 3V IMPRESSION: Right Knee: Tricompartmental osteoarthritis, most severe within the medial compartment. Findings are progressed when compared to the prior examination. Trace joint effusion. Left Knee: Tricompartmental osteoarthritis, most prominent within the medial compartment. Findings are slightly progressed when compared to the prior examination. Trace joint effusion. Electronically signed by: Marcellus Bender MD 06/04/2024 09:59 AM EDT [facility]station: [id number]
== END 2024-05-10 11:51 | disposition home or self-care (01) ==
LOC: HO.HOSX 11:50
PROVIDERS: Visit Provider Physician Assistant
DX: M25.562 Pain in left knee (principal); M17.0 Bilateral primary osteoarthritis of knee
CPT/HCPCS: 73562; 99202

== ENCOUNTER → 2024-05-12 10:20 | Outpatient (REF) | payer MEDICARE, SELFPAY ==
--- NOTE | 2024-05-12 10:33 | CA_ITS ---
Transthoracic Echocardiogram Patient (Last, First, Middle): Everardo Mirza B Gender: Male Date of : 1945 Age: 79 Procedure Date: 05/12/2024 Procedure Type: Transthoracic Echocardiogram Location: OP Height: 182.88 cm Weight: 111.13 kg BSA: 2.32 m2 Heart Rate: bpm BP: 130 / 82 mmHg Hydrometeorologist: Referring MD: Simone Uribe MD Photographic Platemaker: Lewis Espana MD Symptoms: I77.810 - Thoracic aortic ectasia Study Quality: Adequate ECG Rhythm: Sinus Conclusions: - 1. Normal LV ejection fraction of 65-70% with mild LVH with grade 1 diastolic dysfunction 2. Trivial aortic regurgitation 3. Mildly dilated ascending aorta at 3.9 cm 4. Normal RV systolic pressure 5. No gross pericardial effusion Findings Left Ventricle Normal left ventricular size and systolic function. There is mildly increased left ventricular wall thickness. The visually estimated ejection fraction is between 65-70%. Spectral Doppler is indicative of an impaired relaxation filling pattern. E/E prime ratio is <8, consistent with normal filling pressures. Evidence suggests grade I (mild) diastolic dysfunction. Right Ventricle Normal right ventricular cavity size and systolic function. Atria Both atria are normal in size. There is lipomatous hypertrophy of the interatrial septum. Interatrial shunt cannot be excluded. Aortic Valve Normal aortic valve structure and function. There is no aortic valve stenosis. There is trace (trivial) aortic valve regurgitation. Mitral Valve The mitral valve was not well visualized. There is mild anterior mitral leaflet thickening. There is mild mitral annular calcification. There is trace mitral valve regurgitation. There is no mitral valve stenosis. Pulmonic Valve The pulmonic valve is likely normal. Tricuspid Valve Likely normal tricuspid valve structure and function. Tricuspid regurgitation envelope is inadequate for calculation of right ventricular systolic pressure. Normal right atrial pressure. Great Vessels There is mild dilatation of the ascending aorta measuring 3.90 cm. Small plaque is seen in the sino tubular ridge. Venous The inferior vena cava is normal in size and collapses greater than 50% with inspiration. Pericardium/Pleural There is no evidence of pericardial effusion. Prior Study Comparison No significant change compared to prior study dated: 05/06/2022. Measurements 2D Linear Measurements IVSd: 1.32 0.6-0.9/0.6-1.0 cm LVIDd: 4.07 3.9-5.3/4.2-5.9 cm LVIDd Index: 1.75 2.4-3.2/2.2-3.1 cm/m2 LVIDs: 2.73 2.0-3.6 cm LVPWd: 1.29 0.7-1.1 cm Ao Root: 3.80 2.1-3.5 cm LA Diam: 3.80 2.7-3.8/3.0-4.0 cm LAIDs Index: 1.64 1.5-2.3 cm/m2 LV Mass: 239.88 67-162/88-224 g LV Mass Index: 103.40 43-95/49-115 g/m2 LVOT Diam: 2.50 3.0+(-)1.3 cm Mitral Valve MV Pk E: 0.31 MV PK A: 0.79 MV Decel Time: 181.00 E/A: 0.40 E'Lateral: 6.74 E'Medial: 4.13 E/E' Med: 7.60 E/E' Lat: 4.60 PHT: 53.00 MVA PHT: 4.15 Decel Lander: 1.72 Aortic Valve AoV Pk King: 1.10 AoV Mn King: 0.74 AoV VTI: 0.25 AoV Pk Grad: 5.00 Aov Mn Grad: 3.00 CALEB Cont.VTI: 3.32 LVOT LVOT Pk Ikng: 0.73 LVOT Mn King: 0.47 LVOT VTI: 0.17 LVOT Pk Grad: 2.00 LVOT Mn Grad: 1.00 LVOT Diam: 2.50 LVOT Area: 4.91 Diastolic Function MV Pk E: 0.31 MV Pk A: 0.79 E/A: 0.40 E'Medial: 4.13 E/E' Med: 7.60 E' Laterial: 6.74 E/E' Lat: 4.60 Right Ventricle TAPSE (mm): 22.60 TVS' King: 5.55 Tricuspid Valve TR Pk King: 2.31 TR Pk Grad: 21.00 Great Vessels Aorta Ao Root-2D: 3.80 2.0-3.7 cm Ao Asc: 3.90 2.1-3.4 cm Pulmonary Valve PV Pk King: 0.69 Peak PV Grad: 2.00 Updated in Other Vendor System with Status of Final Lewis Espana MD electronically signed on 05/13/2024 9:04:12 AM with status of Final
== END ==
LOC: HO.CARD 10:20
PROVIDERS: Visit Provider Internal Medicine
DX: I77.810 Thoracic aortic ectasia (principal)
CPT/HCPCS: 93306

== ENCOUNTER → 2024-05-12 10:33 | Outpatient (BNV) | payer MEDICARE, SELFPAY | PROVIDERS: Visit Provider Internal Medicine Cardiovascular Disease | DX: I51.89 Other ill-defined heart diseases (principal); I34.81 Nonrheumatic mitral (valve) annulus calcification | CPT/HCPCS: 93306 ==

== ENCOUNTER 2024-05-24 09:43 | Outpatient (AMB) | payer MEDICARE, SELFPAY ==
--- NOTE | 2024-05-24 09:52 | MHC.OFFVIS ---
Vital Signs 05/24/24 09:56 Height 6 ft Weight 242 lb 8.136 oz BMI 32.9 BP 120/68 Blood Pressure Location Lt brachial Position Sitting Pulse 70 Intake Visit Reasons: 1 yr s/p echo Outreach Consultant Required: No Accompanied by: Self / Same As Patient Allergies Penicillins [PENICILLINS] Adverse Reaction (Unknown, Verified 05/10/24 08:41) DIARRHEA Medication List - Last Reconciled 05/24/24 by Simone Uribe MD apixaban (Eliquis) 5 mg PO BID furosemide 20 mg PO DAILY metoprolol succinate ER 25 mg PO DAILY HPI Comments Details: Everardo returns for follow-up regarding atrial fibrillation.? In 2016, he was admitted for chest pressure accompanied by weakness.? 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 He was found to be in atrial fibrillation with rapid rate.? Then he converted back to sinus rhythm.? Since that time, he has been on? beta-blockers as well as anticoagulation. Since last seen, no new complaints. Leg swelling is just about the same as before. Otherwise, getting along okay. [facility] Medical History Ascending aorta dilatation PAF (paroxysmal atrial fibrillation) Surgical History Status post ablation of incompetent vein using laser History of umbilical hernia repair Family History Father No problems noted. Mother No problems noted. Social History Alcohol intake: current Alcohol intake frequency: holidays/special occasions only Patient Tobacco Use Status: Former Tobacco user Review of Systems Const Denies chills, Denies fatigue, Denies fever(s), Denies weight gain and Denies weight loss ENT Denies dizziness Card Denies chest pain, Denies leg edema, Denies lightheadedness, Denies palpitations, Denies dyspnea on exertion, Denies orthopnea and Denies other Resp Denies cough and Denies dyspnea on exertion GI Denies hematochezia and Denies change in stool character Musc Denies abnormal gait, Denies muscle weakness, Denies numbness, Denies radiating pain into limb and Denies tingling Neuro Denies abnormal gait, Denies dizziness, Denies numbness and Denies tingling Endo Denies fatigue and Denies palpitations Physical Exam Vital Signs: Last Vital Signs Pulse 70 05/24/24 09:56 BP 120/68 05/24/24 09:56 BMI result Body Mass Index 32.9 Const General: comfortable and no acute distress Orientation/consciousness: patient oriented x3 HEENT Other: Unremarkable Head: Yes normal to inspection Neck Neck: Yes normal visual inspection Chest Chest palpation & inspection: normal inspection of the chest Resp Auscultation: clear to auscultation bilaterally Cardio Palpation: normal PMI Heart sounds: S1 normal heart sound present, S2 normal heart sound present, no gallops, no murmurs and no rubs GI Palpation (GI): Soft to palpation Back/Spine/Pelvis Other: unremarkable Skin General skin exam: no rashes or lesions noted Neuro General: patient oriented x3 Extrem Other: 1+ edema with chronic changes, L>R. General: Yes normal to inspection Psych Mental Status: mental status grossly normal Office Procedures EKG Details: EKG with underlying sinus rhythm at 70/Min; [place] prolongation to 216 milliseconds; [place]. [id number], Complete Assessment & Plan Assessment & Plan (1) PAF (paroxysmal atrial fibrillation): Code(s): I48.0 - Paroxysmal atrial fibrillation Category: Medical Plan: Continue beta-blockers and anticoagulation. Stable renal function. (2) Ascending aorta dilatation: Code(s): I77.810 - Thoracic aortic ectasia Category: Medical Plan: In the echocardiogram, ascending aortic size was 3.9 cm. Considering his age and body surface area, not considered to be truly dilated. Within acceptable limits. No specific workup for that. (3) Leg swelling: Code(s): M79.89 - Other specified soft tissue disorders Category: Medical Plan: Suspected venous insufficiency/dependent edema. Less likely cardiac etiology. Has had vein ablation through vascular. Coding Level of Care Code Est Pt Level 3 (07694) Diagnoses PAF (paroxysmal atrial fibrillation) I48.0 Ascending aorta dilatation I77.810 Leg swelling M79.89 CPT Codes EKG - CPT: 40154-[id number], Complete ([id number])
[2024-05-24 09:56] VITALS: BP 120/68; PULSE 70; BMI 32.9
== END 2024-05-24 10:33 | disposition home or self-care (01) ==
PROVIDERS: PCP Nurse Practitioner Family; Visit Provider Internal Medicine
DX: I48.0 Paroxysmal atrial fibrillation (principal); I77.810 Thoracic aortic ectasia; M79.89 Other specified soft tissue disorders
CPT/HCPCS: 93010; 99213

== ENCOUNTER → 2024-05-24 09:43 | Outpatient (BNVA) | payer MEDICARE, SELFPAY | PROVIDERS: PCP Nurse Practitioner Family; Visit Provider Internal Medicine | DX: I48.0 Paroxysmal atrial fibrillation (principal); I77.810 Thoracic aortic ectasia; M79.89 Other specified soft tissue disorders; I44.0 Atrioventricular block, first degree | CPT/HCPCS: 93005; 99212 ==

== ENCOUNTER 2024-06-04 08:32 | Emergency (ER) | payer MEDICARE, SELFPAY ==
--- NOTE | ~2024-06-04 | XR_ITS ---
EXAMINATION: XR KNEE, RIGHT CLINICAL INFORMATION: Right knee pain. COMPARISON: Right knee radiographs dated 05/10/2024. TECHNIQUE: Four views of the right knee. FINDINGS: Severe medial compartment joint space narrowing with bony remodeling. Tricompartmental marginal osteophytes. No acute fracture or dislocation. No concerning lytic or blastic osseous lesion. No abnormal soft tissue calcification. XR/XR knee RT 3V IMPRESSION: Tricompartmental osteoarthritis, most severe within the medial compartment. Electronically signed by: Marcellus Bender MD 06/04/2024 09:59 AM EDT
--- NOTE | ~2024-06-04 | US_ITS ---
EXAMINATION: US TRIPLEX LOWER EXTREMITY, RIGHT CLINICAL INFORMATION: Right leg pain. Evaluate for deep vein thrombosis. COMPARISON: Right lower extremity venous ultrasound dated 05/09/2023. TECHNIQUE: Color-flow triplex imaging with spectral analysis and compression Doppler were performed on the right lower extremity. FINDINGS: Respiratory variation, normal compression and augmented flow are noted throughout the right lower extremity. The visualized common femoral vein, superficial femoral vein, profunda femoral vein, popliteal vein and midcalf peroneal and posterior tibial venous segments show no evidence of deep venous thrombosis. Partial opacification of the right greater saphenous vein, similar when compared to the prior examination and consistent with the patient's prior ablation. There is no Clark's cyst. US/US venous duplex LE RT IMPRESSION: No evidence of deep venous thrombosis involving the right lower extremity. Electronically signed by: Marcellus Bender MD 06/04/2024 02:37 PM EDT
[2024-06-04 08:47] VITALS: BP 129/77; BP 159/79; PULSE 87; PULSE 92; RESP 18; TEMP 36.8; O2SAT 93; O2SAT 96; BMI 31.5
--- NOTE | 2024-06-04 09:42 | ED_ITS ---
HPI - General Adult General Chief complaint: Extremity Injury, Lower Stated complaint: RT LEG PAIN,DIFF AMBULATING Time Seen by Provider: 06/04/24 09:11 Source: patient Mode of arrival: ambulatory Limitations: no limitations History of Present Illness ED Provider: Billy Jauregui PA-C HPI narrative: 79 yold male with arthritis, varicose veins, paroxysmal atrial fibrillation presents to ED for right knee pain going down right leg with right posterior calf pain. Patient states no trauma awkward movement. Patient has had right knee flare up and left knee flare from arthritis in the past. Patient denies any fever, chills, redness, chest pain, shortness of breath, or pleurisy. Related Data Previous Rx's ?Medication ?Instructions ?Recorded furosemide 20 mg tablet 20 mg PO DAILY #90 tabs 05/26/23 apixaban 5 mg tablet (Eliquis) 5 mg PO BID #180 tabs 12/09/23 metoprolol succinate 25 mg 25 mg PO DAILY #90 tabs 02/20/24 tablet,extended release 24 hr acetaminophen 325 mg capsule 650 mg (2 x 325 mg) PO Q6H PRN 06/05/24 (Tylenol) pain #30 caps oxycodone 5 mg capsule 5 mg PO BID PRN pain #7 caps 06/05/24 Allergies Allergy/AdvReac Type Severity Reaction Status Date / Time Penicillins [PENICILLINS] AdvReac Unknown DIARRHEA Verified 06/04/24 08:49 Review of Systems 2 Review of Systems: Right knee pain Yes all other systems are reviewed and are negative PMFSH Past Medical History Medical History Ascending aorta dilatation PAF (paroxysmal atrial fibrillation) Surgical History Status post ablation of incompetent vein using laser History of umbilical hernia repair Family History Family History Father No problems noted. Mother No problems noted. Social History Social History Alcohol intake: current Alcohol intake frequency: a few times a month Patient Tobacco Use Status: Former Tobacco user Smoked in Last 30 Days: No Use of substances other than those prescribed or required for medical reasons: No Advance Directives: No Advance Directives Information Provided: Yes Do you have a plan to hurt others: No Plan Physical Exam ED Vital Signs: Vital Signs - 24 hr 06/04/24 19:38 06/05/24 04:18 06/05/24 08:11 Temperature 98.3 F 97.4 F 97.0 F Pulse Rate 90 71 63 Respiratory Rate 20 16 15 Blood Pressure 134/84 143/68 H 131/62 Pulse Oximetry 94 93 94 Oxygen Delivery Method Room Air Room Air Room Air 06/05/24 14:13 06/05/24 16:03 Temperature 96.8 F 98.6 F Pulse Rate 77 77 Respiratory Rate 16 16 Blood Pressure 134/77 134/77 Pulse Oximetry 94 94 Oxygen Delivery Method Room Air BMI result Body Mass Index 31.5 Const General: cooperative, healthy appearing, comfortable, no acute distress, well developed, alert, awake and Physically active Orientation/consciousness: patient oriented x3 HENPR Head: Yes normal to inspection, Yes No palpable skull fracture present, Yes normocephalic, Yes atraumatic and No abrasion Eyes General: appearance normal, both eyes and all related structures Neck Neck: Yes normal visual inspection, Yes full ROM, Yes no lymphadenopathy, Yes no meningeal signs, Yes trachea midline, Yes supple, No anterior neck swelling and No tender Chest Chest palpation & inspection: normal inspection of the chest and normal palpation of entire chest wall Resp Effort & Inspection: normal respiratory effort and able to speak in complete sentences Auscultation: clear to auscultation bilaterally Cardio Jugular venous distension: no JVD Heart sounds: S1 normal heart sound present and S2 normal heart sound present GI Inspection: Yes normal to inspection Palpation (GI): Soft to palpation, not firm, nontender, no guarding and not rigid General: No CVA tenderness and Yes no CVA tenderness Back/Spine/Pelvis Back: no CVA tenderness, No CVA tenderness and No back tenderness Skin General skin exam: no rashes or lesions noted, elasticity normal and turgor normal Neuro General: patient oriented x3, gait normal, tone normal, moves all extremities, Normal light touch and pain sensation, no meningeal signs, no focal motor deficits, CN's II-XI intact bilaterally and normal sensation to monofilament Extrem General: Yes normal to inspection, Yes full ROM and Yes capillary refill normal Upper/lower leg/hip images: 2 1. Positive for right calf tenderness without any erythema, ecchymosis, fluctuance, ecchymosis, or deformity. Motor/neuro/vascular exam intact Knee images: 2 1. Positive for tenderness on palpation. Negative for fluctuance, erythema, or warmth. Negative for ecchymosis, crepitus, or deformity. Motor, neuro, and vascular exam is intact 2. Positive for tenderness on palpation. Negative for fluctuance, erythema, or warmth. Negative for ecchymosis, crepitus, or deformity. Motor, neuro, and vascualr exam is intact 3. Positive for tenderness on palpation. Negative for fluctuance, erythema, or warmth. Negative for ecchymosis, crepitus, or deformity. Vascular, motor, and neuro exam is intact. Psych Appearance: grossly normal, well kempt and not disheveled Course Reevaluation(s) Reevaluation #1: Patient was evaluated by case management who feels as though patient is ready to be discharged home with comfort +VNA services. I agree with this plan. Patient and family are in agreeance. Patient was educated on diagnosis and treatment plan, answered all question, patient verbalizes understanding. At this time patient will be discharged home, advised to return with new or worsening symptoms. Educated on worrisome signs and symptoms and when to return. At this time I feel comfortable discharge home. Time: 14:01 Reevaluation #2: Physician observation ended at this time. Patient took oxycodone for pain yesterday with great relief of symptoms. Will give him a small supply of this. Safe narcotic handling instructions on discharge peer Time: 14:14 Medications Administered Discontinued Medications Generic Name Dose Route Start Last Admin Trade Name Jaleel PRN Reason Stop Dose Admin Acetaminophen 975 mg 06/04/24 09:36 06/04/24 09:52 Acetaminophen 325 Mg Tablet PO 06/04/24 09:37 975 mg ONCE ONE Administration Acetaminophen 975 mg 06/04/24 19:30 06/04/24 19:41 Acetaminophen 325 Mg Tablet PO 650 mg ONCE PRN Administration Pain, Mild (Pain Scale 1-3) Apixaban 5 mg 06/04/24 21:00 06/05/24 08:15 Apixaban 5 Mg Tablet PO 5 mg BID MALIK Administration Furosemide 20 mg 06/04/24 18:45 06/05/24 08:14 Furosemide 20 Mg Tablet PO 20 mg DAILY MALIK Administration Protocol Metoprolol Succinate 25 mg 06/04/24 18:45 06/05/24 08:14 Metoprolol Succinate Er 25 Mg Tab.Er.24h PO 25 mg DAILY MALIK Administration Protocol Oxycodone HCl 5 mg 06/04/24 11:19 06/04/24 11:51 Oxycodone Hcl Immed Release 5 Mg Tablet PO 06/04/24 11:20 5 mg ONCE ONE Administration Prednisone 40 mg 06/04/24 09:36 06/04/24 09:52 Prednisone 20 Mg Tablet PO 06/04/24 09:37 40 mg ONCE ONE Administration Medical Decision Making Medical Decision Making MDM Narrative: 79-year-old male history of bilateral arthritis presents to ED for right knee pain without any trauma. Physical exam negative for any warmth, redness, or obvious swelling. Positive for knee tenderness and posterior calf tenderness on palpation. Vascular neuro motor exam intact. Was sent for x-ray and ultrasound. Patient on Eliquis we will give Tylenol and prednisone. 2:30pm1:00pm: Patient has trouble ambulating. Patient given oxycodone for pain. Physical therapy came and evaluate patient she recommends patient go to short-term rehab for severe right knee arthritis. Ultrasound negative DVT. Daughter and patient is agreeable for plan. Physician observation begin. Kamila case management agree with plan and states no labs needed for short-term rehab. Differential Diagnosis Differential Diagnoses: The differential diagnosis associated with the presentation includes Lab Data Labs: Lab Results 06/04/24 Range/Units 11:12 COVID-19 (JIN) Negative (Negative) COVID-19 Clin Com See Note Discharge Plan Discharge Clinical Impression: Osteoarthritis of knees, bilateral Qualifiers: Osteoarthritis type: primary Qualified Code(s): M17.0 - Bilateral primary osteoarthritis of knee Patient Disposition: Home, Self-Care Additional Instructions: Take your medications as prescribed. If you were prescribed antibiotics today, it is important that you take your medication to their entirety, do not skip any doses, do not finish them early. Follow-up with your primary care provider this week. Return to the emergency department with new or worsening symptoms. Such as fevers, chills, chest pain, shortness of breath, nausea, vomiting, dizziness, headache, vision changes, lethargy In case of emergency call 911 A narcotic has been sent to your pharmacy please take this as prescribed. Do not take more than the prescribed dose. Narcotic medications can cause addiction. Please do not mix them with alcohol. Do not take them while driving or operating machinery. Do not take them with any other narcotics. Do not share them with friends or family. They can cause constipation. Take them only for severe pain. Prescriptions: New acetaminophen [Tylenol] 325 mg capsule 650 mg PO Q6H PRN (Reason: pain) Qty: 30 0RF oxycodone 5 mg capsule 5 mg PO BID PRN (Reason: pain) Qty: 7 0RF Rx Instructions: Partial Fill upon patient request. No Action furosemide 20 mg tablet 20 mg PO DAILY Qty: 90 3RF Eliquis 5 mg tablet 5 mg PO BID Qty: 180 1RF metoprolol succinate 25 mg tablet extended release 24 hr 25 mg PO DAILY Qty: 90 3RF Interventions: ED Discharge Assessment Last Done: 06/05/24 16:03 Discharge Date/Time: 06/05/24 16:04 Print Language: Salvadorean
[2024-06-04] MEDS: predniSONE 20 MG TABLET 40 MG PO (09:52)
[2024-06-04] MEDS: Acetaminophen 325 MG TABLET 975 MG PO ×2 (09:52→19:41)
[2024-06-04 11:41] LABS: COVID-19 Test Negative (Negative); IDNOW Serial# 152EDE1D
[2024-06-04] MEDS: oxyCODONE HCl Immed Release 5 MG TABLET PO (11:51)
[2024-06-04 13:33] VITALS: BP 142/79; PULSE 82; RESP 18; TEMP 36.5; O2SAT 95
[2024-06-04 14:28] VITALS: BP 142/79; PULSE 82; O2SAT 95
--- NOTE | 2024-06-04 15:40 | MHC.CM.ED ---
Received case management consult from Billy JIM. Patient came to the ER with leg pain. Work up essentially negative. Physical therapy eval completed. Acute rehab is recommended. Met with patient in regards to discharge planning. Patient lives alone, ambulates with a cane and had no services prior to coming to the hospital. PCP verified. Copy of HCP obtained from [facility]. Patient is requesting to go to [facility]. T/W explained [facility] Is unlikely to authorize acute rehab. Patient agreeable to referral being broadcasted to all SNFs within 15 miles that are contracted with patient's insurance. Patient requests CM speak with his daughter, Leatha. Spoke with Leatha via telephone at [phone]. Leatha requesting referral to [facility]. Same information provided to Leatha about [facility] and acute rehab. Referral made to [facility] at her request. Leatha requesting to privately pay for [facility] if [facility] will not authorize. Continue to monitor for d/c needs.
[2024-06-04 16:09] VITALS: BP 120/74; PULSE 95; RESP 20; TEMP 36.8; O2SAT 93
--- NOTE | 2024-06-04 16:18 | MHC.CM.ED ---
Met with patient to update discharge plan. Patient aware [facility] has not said if they are able to offer a bed. Also explained the following facilities are able to offer a bed: [facility], [facility], [facility], [facility], [facility], and [address] [place] [address]. Still waiting [facility] hear from [facility] Spoke with patient's daughter, Leatha, via telephone at [phone]. Leatha is still insistant that they will privately pay for [facility] if [facility] does not authorize. Leatha made aware [facility] hasn't determined if they will be able to offer a bed. Leatha also aware if [facility] does not authorize, will ask [facility] about privately paying. Continue to monitor for d/c needs.
--- NOTE | 2024-06-04 17:44 | PC.NURSE ---
Medication Reconciliation completed by this RN. Provider (Billy Jauregui) notified.
[2024-06-04 18:00] VITALS: RESP 18
[2024-06-04 19:38] VITALS: BP 134/84; PULSE 90; RESP 20; TEMP 36.8; O2SAT 94
--- NOTE | 2024-06-04 23:21 | PC.NURSE ---
Patient refusing scheduled medications. A&O x1 to person, confused, easily redirectable. Safety measures in place, bed alarm on . Call glass within reach.
[2024-06-05 04:18] VITALS: BP 143/68; PULSE 71; RESP 16; TEMP 36.3; O2SAT 93
[2024-06-05 08:11] VITALS: BP 131/62; PULSE 63; RESP 15; TEMP 36.1; O2SAT 94
[2024-06-05] MEDS: Metoprolol Succinate ER 25 MG TAB.ER.24H PO (08:14)
[2024-06-05] MEDS: Furosemide 20 MG TABLET PO (08:14)
[2024-06-05] MEDS: Apixaban 5 MG TABLET PO (08:15)
--- NOTE | 2024-06-05 08:50 | MHC.CM.ED ---
Addendum entered by Sheryl Gustafson 06/05/24 14:23: Pt has been accepted by [facility] for RN and PT services. Start of care on 06/06. Pt given a walker and will d/c to home with family providing transportation. ED MD aware. Pt and family in agreement w/d/c plan Addendum entered by Sheryl Gustafson 06/05/24 10:16: [facility] unable to offer a bed. Discussed options with Leatha who does not want pt to go to a SNF. Private pay and VNA reviewed with Leatha agreeing to a broad VNA referral. Awaiting acceptance for coordination of d/c plan. Original Note: Pt was not offered a bed at [facility]: Call placed to pts dtr Leatha who requests [facility] referrals to [facility] before considering SNF offers. Awaiting response from the two sites.
--- NOTE | 2024-06-05 10:20 | PHA.MEDREC ---
Pharmacy Consult ? Medication Reconciliation RN has completed the medication reconciliation, [facility] reviewed per claim history.
--- NOTE | 2024-06-05 13:53 | MHC.EDTECH ---
pt ambulating to bathroom with use of walker and a steady gait, RN aware
[2024-06-05 14:13] VITALS: BP 134/77; PULSE 77; RESP 16; TEMP 36; O2SAT 94
[2024-06-05 16:03] VITALS: BP 134/77; PULSE 77; RESP 16; TEMP 37; O2SAT 94
== END 2024-06-05 16:04 | disposition home or self-care (01) ==
PROVIDERS: Physician Assistant; Emergency Provider Emergency Medicine Emergency Medical Services; PCP Nurse Practitioner Family
DX: M17.0 Bilateral primary osteoarthritis of knee (principal); R60.0 Localized edema; Z11.52 Encounter for screening for COVID-19; Z79.899 Other long term (current) drug therapy
CPT/HCPCS: 73562; 87635; 93971; 97161; 99284

== ENCOUNTER 2025-05-25 09:48 | Outpatient (AMB) | payer MEDICARE, SELFPAY ==
--- NOTE | 2025-05-25 09:53 | A.OFFVIS_ITS ---
Vital Signs 05/25/25 09:57 Height 6 ft Weight 246 lb 14.684 oz BMI 33.5 BP 134/80 Blood Pressure Location Lt brachial Position Sitting Pulse 72 Intake Visit Reasons: 1 yr f/up Intake Note: 1 year follow-up with ekg feeling good Wellness Director Required: No Allergies Penicillins (PENICILLINS) Adverse Reaction (Unknown, Verified 06/04/24 08:49) DIARRHEA Medication List - Last Reconciled 05/25/25 by Simone Uribe MD acetaminophen (Tylenol) 650 mg (2 x 325 mg) PO Q6H PRN apixaban (Eliquis) 5 mg PO BID furosemide 20 mg PO DAILY metoprolol succinate ER 25 mg PO DAILY HPI Comments Details: Everardo returns for follow-up regarding atrial fibrillation.? In 2016, he was admitted for chest pressure accompanied by weakness.? 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 He was found to be in atrial fibrillation with rapid rate.? Then he converted back to sinus rhythm.? Since that time, he has been on? beta-blockers as well as anticoagulation. He has done quite well without any recurring atrial fibrillation. Leg swelling is also just about the same as before. [facility] Medical History Ascending aorta dilatation PAF (paroxysmal atrial fibrillation) Surgical History Status post ablation of incompetent vein using laser History of umbilical hernia repair Family History Father No problems noted. Mother No problems noted. Social History Alcohol intake: current Alcohol intake frequency: a few times a month Patient Tobacco Use Status: Former Tobacco user Review of Systems Const Denies chills, Denies fatigue, Denies fever(s), Denies frequent falls, Denies weakness, Denies weight gain and Denies weight loss ENT Denies dizziness Card Denies chest pain, Denies leg edema, Denies lightheadedness, Denies palpitations, Denies dyspnea, Denies dyspnea on exertion, Denies orthopnea and Denies other (loss of consciousness) Resp Denies cough, Denies dyspnea and Denies dyspnea on exertion GI Denies hematochezia and Denies change in stool character Musc Denies abnormal gait, Denies muscle weakness, Denies numbness, Denies radiating pain into limb and Denies tingling Neuro Denies abnormal gait, Denies dizziness, Denies frequent falls, Denies numbness, Denies tingling and Denies weakness Endo Denies fatigue and Denies palpitations Physical Exam Vital Signs: Last Vital Signs Pulse 72 05/25/25 09:57 BP 134/80 05/25/25 09:57 BMI result Body Mass Index 33.5 Const General: comfortable and no acute distress Orientation/consciousness: patient oriented x3 HEENT Other: Unremarkable Head: Yes normal to inspection Neck Neck: Yes normal visual inspection Chest Chest palpation & inspection: normal inspection of the chest Resp Auscultation: clear to auscultation bilaterally Cardio Palpation: normal PMI Heart sounds: S1 normal heart sound present, S2 normal heart sound present, no gallops, no murmurs and no rubs GI Palpation (GI): Soft to palpation Back/Spine/Pelvis Other: unremarkable Skin General skin exam: no rashes or lesions noted Neuro General: patient oriented x3 Extrem General: Yes normal to inspection Psych Mental Status: mental status grossly normal Office Procedures EKG Details: EKG with underlying sinus rhythm at 72/Min; DC prolongation to 242 milliseconds; cannot exclude old anterior infarct; [place]. [id number], Complete Assessment & Plan Assessment & Plan (1) PAF (paroxysmal atrial fibrillation): Code(s): I48.0 - Paroxysmal atrial fibrillation Category: Medical Plan: Continue beta-blockers and anticoagulation. In the recent labs from [facility], creatinine was 0.97. (2) Ascending aorta dilatation: Code(s): I77.810 - Thoracic aortic ectasia Category: Medical Plan: In the echocardiogram, ascending aortic size was 3.9 cm. Considering his age and body surface area, within acceptable limits. No specific management for that. (3) Leg swelling: Code(s): M79.89 - Other specified soft tissue disorders Category: Medical Plan: Suspected venous insufficiency/dependent edema. Has had vein ablation through vascular. He is on a small dose of diuretic. Seems to be on a small dose of La six. Plan Discussion Notes During the visit, we discussed the management of atrial fibrillation with metoprolol and Eliquis, emphasizing the importance of regular follow-up and monitoring of anticoagulation status. We also addressed the management of peripheral edema with furosemide and the need for weight loss to alleviate venous pressure. Patient was informed and verbally consented to the use of an ambient scribe for clinic note documentation during this visit. Patient Instructions: - Continue taking metoprolol and Eliquis as prescribed. - Monitor for any signs of atrial fibrillation recurrence and report them immediately. - Monitor for any swelling in the legs. - Aim to lose lose weight to help reduce venous pressure. - Ensure regular laboratory tests to monitor potassium levels and overall health status. Coding Level of Care Code Est Pt Level 4 (66895) Complex EM visit Add On G2211 Diagnoses PAF (paroxysmal atrial fibrillation) I48.0 Ascending aorta dilatation I77.810 Leg swelling M79.89 CPT Codes EKG - CPT: 76963-[id number], Complete ([id number])
[2025-05-25 09:57] VITALS: BP 134/80; PULSE 72; BMI 33.5
--- OUTSIDE RECORDS SUMMARY | 2025-05-25 11:36 | XMS_ITS | Clinical Summary ---
Author Organization [facility] Address [address] [place] [id number] Phone Care Team Providers Care Administrative Project Coordinator Name Role Phone Unavailable Primary Care Provider Unavailabl e Social History Tobacco Use Types Packs/Day Years Used Date Smoking Tobacco: Never Assessed Education Answer Date Recorded Are you interested in more education? Not on mani e 06/05/2024 Are you concerned about learning? Not on file 06/05/2024 No 06/05/2024 No 06/05/2024 Digital Access Answer Date Recorded No 06/05/2024 No 06/05/2024 Reliable internet access at home? Not on file 06/05/2024 Device with a working camera? Not on file Sex and Gender Information Value Date Recorded Sex Assigned at Not on file Legal Sex Male 2:40 PM EDT Gender Identity Not on file Sexual Orientation Not on file Plan of Treatment Not on file Medical Devices Not on file Additional Source Comments The information contained in this document represents components of the legal health record. It is not the complete legal health record.[facility]
--- OUTSIDE RECORDS SUMMARY | 2025-05-25 11:36 | XMS_ITS | Patient Health Record ---
[facility] Address [address] [place] [address] Care Team Providers Care Denture Technician Name Role Phone Jovani South Primary Care Provider Blanca Schmidt Unavailable [phone] Allergies No Known Allergies Reason For Referral No Information Medications Medication SIG (Take, Route, Frequency, Duration) Notes Start Date End Date Status Furosemide 20 MG TAKE 1 TABLET BY JULIO TH EVERY DAY Oral; Duration: 90 Days Active Metoprolol Succinate ER 25 MG Oral; Duration: 90 Days Acti ve Eliquis 5 MG Oral; Duration: 90 Days Active Social History Tobacco Use: Social History Observation Description Date Details (start date - stop date) Former Smoker NA - NA Tobacco Use/Smoking Question Answer Notes Are you a: former smoker Additional Findings: Tobacco Non-User Current no n-smoker Alcohol Screen Question Answer Notes Did you have a drink containing alcohol in the p ast year? No Points 0 Interpretation Negative Tobacco use other than smoking: Question Answer Notes Are you an other tobacco user? No Problems Problem Type SNOMED Code ICD Code Onset Dates Problem Status W/U Status Risk Notes Problem Acquired hammer toe of right foot (5068396626462600) Other hammer toe(s) (acquired), right foot (M20.41) Active confirmed Problem Acquired hammer toe of left foot (1244001110596647) Other hammer toe(s) (acquired), left foot (M20.42) Active confirmed Problem Neuropathy (446480274) Neuropathy (G62.9) Active confirmed Problem Bilateral atherosclerosis of arteries of lower limbs (disorder) (94147195008105879 ) Atherosclerosis of [place] artery of both lower extremities, with unspecified presence of clinical manifestation (I70.203) Active confirmed Problem Localized, primary osteoarthritis of the ankle and/or foot (713563719) Arthritis of joint of lesser toe, left (M19.072) Active confirmed Problem Localized, primary osteoarthritis of the ankle and/or foot (281683137) Arthritis of joint of lesser toe, right (M19.071) Active confirmed Plan Of Treatment No Information Insurance Providers Payer Name Payer Address Payer Phone Subscriber Number Group Number Insured Name Patient Relationship to Insured Coverage Start Date Coverage End Date [employer] [address] [place] [address] [id number] Antonio sonEverardo Self - patient is the insured Medical (General) History Medical History History ICD Code Chicken pox
== END 2025-05-25 10:25 | disposition home or self-care (01) ==
LOC: HO.HCS 09:48
PROVIDERS: PCP Nurse Practitioner Family; Visit Provider Internal Medicine
DX: I48.0 Paroxysmal atrial fibrillation (principal); I77.810 Thoracic aortic ectasia; M79.89 Other specified soft tissue disorders
CPT/HCPCS: 93010; 99214; G2211

== ENCOUNTER → 2025-05-25 09:48 | Outpatient (BNVA) | payer MEDICARE, SELFPAY | PROVIDERS: PCP Nurse Practitioner Family; Visit Provider Internal Medicine | DX: I48.0 Paroxysmal atrial fibrillation (principal); I44.0 Atrioventricular block, first degree; I77.810 Thoracic aortic ectasia; M79.89 Other specified soft tissue disorders | CPT/HCPCS: 93005; 99212 ==

== ENCOUNTER 2025-07-14 14:57 | Emergency (ER) | payer MEDICARE, SELFPAY ==
[2025-07-14 15:08] VITALS: BP 152/82; PULSE 80; O2SAT 98
[2025-07-14 15:13] VITALS: BP 144/95; PULSE 83; RESP 14; TEMP 36.8; O2SAT 95; BMI 37.4
[2025-07-14 15:17] VITALS: BP 144/95; PULSE 83; RESP 14; TEMP 36.8; O2SAT 95
--- NOTE | 2025-07-14 16:36 | ED.GENADULT ---
HPI - General Adult General Chief complaint: Fall Stated complaint: BROOKS LAC FROM STEP STOOL,NO FALL,+THINNERS PER EMS Time Seen by Provider: 07/14/25 15:58 History of Present Illness ED Provider: Elizabeth Huntley NP HPI narrative: 80-year-old male medical history significant for paroxysmal atrial fibrillation chronically anticoagulated on Eliquis, ascending aortic dilation followed by cardiology Dr. 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 Patient reports that he has not have a full fall injury, he accidentally slid his left leg down the chair that was wooden that he was getting off of. He has not fall onto his buttocks at all, there was no head strike, LOC, neck pain. He reports scraping the leg along the chair, and sustaining a skin tear injury through the jeans he was wearing. He was concerned at home as the bleeding would not stop, and was brought to the ED via EMS. He denies any fever, chills. No chest pain or pressure. No shortness of breath, abdominal pain, nausea or vomiting, urinary complaints. Has otherwise been feeling well. Related Data Previous Rx's ?Medication ?Instructions ?Recorded acetaminophen 325 mg capsule 650 mg (2 x 325 mg) PO Q6H PRN 06/05/24 (Tylenol) pain #30 caps apixaban 5 mg tablet (Eliquis) 5 mg PO BID #180 tabs 08/12/24 furosemide 20 mg tablet 20 mg PO DAILY #90 tabs 08/12/24 metoprolol succinate 25 mg 25 mg PO DAILY #90 tabs 03/28/25 tablet,extended release 24 hr cephalexin 500 mg capsule 1,000 mg (2 x 500 mg) PO BID 7 07/14/25 days #28 caps Allergies Allergy/AdvReac Type Severity Reaction Status Date / Time Penicillins (PENICILLINS) AdvReac Unknown DIARRHEA Verified 07/14/25 15:14 Review of Systems Review of Systems: ROS is otherwise negative unless mentioned in HPI. [facility] Past Medical History Medical History Ascending aorta dilatation PAF (paroxysmal atrial fibrillation) Surgical History Status post ablation of incompetent vein using laser History of umbilical hernia repair Family History Family History Father No problems noted. Mother No problems noted. Social History Social History Alcohol intake: current Alcohol intake frequency: a few times a month Patient Tobacco Use Status: Former Tobacco user Smoked in Last 30 Days: No Use of substances other than those prescribed or required for medical reasons: No Advance Directives: Yes Advance Directives Information Provided: No Advance Directives on File: No Do you have a plan to hurt others: No Plan Physical Exam ED Exam Exam: Nursing notes and vital signs reviewed. Constitutional: Well-appearing, NAD. Alert. Oriented X3. Eyes: EOMI. ENT: Pharynx normal. Neck: Normal inspection. Neck supple. Respiratory: No respiratory distress. Abdomen: Nondistended. Skin: Skin warm and dry. Normal skin color. Large irregular skin tear to the left lower extremity. Extremities: 1+ pitting edema to the b/l lower extremities, R>L. Neuro: Oriented X 3. No motor deficit. Vital Signs: Vital Signs - 24 hr 07/14/25 15:13 07/14/25 15:17 07/14/25 15:17 Temperature 98.2 F 98.2 F 98.2 F Pulse Rate 83 83 83 Respiratory Rate 14 14 14 Blood Pressure 144/95 H 144/95 H 144/95 H Pulse Oximetry 95 95 95 Oxygen Delivery Method Room Air Room Air BMI result Body Mass Index 37.4 Medical Decision Making Medical Decision Making [facility] Narrative: 4:36 PM 07/14/2025 (Elizabeth Huntley NP): Upon my initial assessment of this patient, he arrives via ambulance with his daughter. The patient was climbing a chair when he scraped his leg when coming down from the chair, causing a laceration to the left leg. The laceration was sustained through his jeans. He is on Eliquis for paroxysmal atrial fibrillation. See photo in physical examination, there is a larger skin tear. Given the edema I was unable to approximate the wound edges completely, and therefore I placed a wound dressing with Xeroform gauze, nonadherant pads, and Rigoberto bandage for compression. I discussed extensively with both the patient, and with his daughter the importance of compressing the skin tear site given the already present edema, as well as monitoring of the wound site. I also recommended they follow up with the [facility]. Additionally, I will prescribe a course of Keflex for prophylactic antibiotic treatment. With any worsening edema, worsening pain, developing hematoma, the patient is to return to the ED. I did recommend he does not take a dose of his Eliquis tonight, and begin tomorrow. He, his daughter are agreeable and express understanding to plan of care. Differential Diagnosis Differential Diagnoses: The differential diagnosis associated with the presentation includes Hematoma, laceration, skin tear, abrasion Admission/Observation Consideration of admission/observation: Escalation of care including admission/observation considered (Not indicated) Independent Historian Clinical information obtained from an independent historian. History obtained from or confirmed by: EMS and Other (Daughter) External Record Review External record reviewed: Office record, Outpatient record, Prior outpatient labs, Primary care record and Outside ED record Chronic Conditions Patient?s care impacted by: Diabetes, Hypertension and Other (Paroxysmal atrial fibrillation) Social Determinants Patient?s care significantly limited by Social Determinants of Health including: Problems related to primary support group Discharge Plan Discharge Clinical Impression: Noninfected skin tear of left leg Patient Disposition: Home, Self-Care Instructions: Laceration Without Closure (ED) Additional Instructions: We discussed, you have a skin tear to the left lower leg. We are unable to close the skin tear, as the wound edges can not be approximated, and your leg is very swollen. We have recommended that you skip 1 dose of Eliquis this evening, as you are on this for paroxysmal atrial fibrillation. You may take your dose in the morning. Given the leg swelling, and concern with infection, we have also prescribed you a course of Keflex. Please take the antibiotic in the entirety. Additionally, we want for you to follow up closely with our [facility]. Please call them tomorrow and schedule an appointment at the earliest convenience. With any worsening complaints as we discussed, return back to the ED for additional assessment. Prescriptions: New cephalexin 500 mg capsule 1,000 mg PO BID 7 Days Qty: 28 0RF No Action Eliquis 5 mg tablet 5 mg PO BID Qty: 180 1RF furosemide 20 mg tablet 20 mg PO DAILY Qty: 90 3RF metoprolol succinate 25 mg tablet extended release 24 hr 25 mg PO DAILY Qty: 90 3RF acetaminophen [Tylenol] 325 mg capsule 650 mg PO Q6H PRN (Reason: pain) Qty: 30 0RF Referrals: [facility] [Outside] Jovani Ivey FNP [Primary Care Provider, Internal Medicine] Print Language: Brazilian
[2025-07-14 16:56] VITALS: BP 138/74; PULSE 82; RESP 16; TEMP 36.7; O2SAT 96
--- OUTSIDE RECORDS SUMMARY | 2025-07-14 23:07 | XMS_ITS | Patient Health Record ---
[facility] Address [address] [place] [address] Care Team Providers Care Fireperson Name Role Phone Jovani South Primary Care Provider Blanca Schmidt Unavailable [phone] Allergies No Known Allergies Reason For Referral [...] Problem Acquired hammer toe of right foot (4196312628813689) Other hammer toe(s) (acquired), right foot (M20.41) Active confirmed Problem Acquired hammer toe of left foot (6692967650888520) Other hammer toe(s) (acquired), left foot (M20.42) Active confirmed Problem Neuropathy (635222946) Neuropathy (G62.9) Active confirmed Problem Bilateral atherosclerosis of arteries of lower limbs (disorder) (36075366720708344 ) Atherosclerosis of [place] artery of both lower extremities, with unspecified presence of clinical manifestation (I70.203) Active confirmed Problem Localized, primary osteoarthritis of the ankle and/or foot (655223283) Arthritis of joint of lesser toe, left (M19.072) Active confirmed Problem Localized, primary osteoarthritis of the ankle and/or foot (686993201) Arthritis of joint of lesser toe, right (M19.071) Active confirmed Plan Of Treatment No Information Insurance Providers Payer Name Payer Address Payer Phone Subscriber Number Group Number Insured Name Patient Relationship to Insured Coverage Start Date Coverage End Date [employer] [place] [employer] [address] [place] [address] [id number] Antonio sonEverardo Self - patient is the insured Medical (General) History Medical History History ICD Code Chicken pox
--- OUTSIDE RECORDS SUMMARY | 2025-07-14 23:07 | XMS_ITS | Clinical Summary ---
Author Organization [facility] Address [address] [place] [phone] Phone Care Team Providers Care Camera Prototyping Engineer Name Role Phone Unavailable Primary Care Provider [...] It is not the complete legal health record.[facility]
== END 2025-07-14 17:08 | disposition home or self-care (01) ==
PROVIDERS: Emergency Provider Emergency Medicine; PCP Nurse Practitioner Family
DX: S81.812A Laceration without foreign body, left lower leg, initial encounter (principal); M79.605 Pain in left leg; R60.0 Localized edema; I48.91 Unspecified atrial fibrillation; W26.9XXA Contact with unspecified sharp object(s), initial encounter; Y93.9 Activity, unspecified; Y92.9 Unspecified place or not applicable; Y99.8 Other external cause status; Z87.891 Personal history of nicotine dependence; Z79.01 Long term (current) use of anticoagulants
CPT/HCPCS: 99283; 99284